=== PATIENT | female | born 1935 | race Caucasian/White ===

== ENCOUNTER 2018-07-27 12:11 | Inpatient (IN) | payer MEDICARE ==
[2018-07-27] MEDS ORDERED: SODIUM CHLORIDE 0.9% 1,000 ML IV ONE ×2 (12:15→14:48)
--- NOTE | 2018-07-27 12:28 | ED ---
General Adult HPI - General Stated complaint: Fall - History of Present Illness Initial comments: Dictation was produced using [employer] dictation software. please excuse any grammatical, word or spelling errors. Chief Complaint: 83-year-old female presents via EMS for right hip pain. History of Present Illness: Patient was transferred by EMS for right hip pain. Patient allegedly tripped over her oxygen cord. She fell onto her right side she merely notice right hip pain. Patient denies any other complaints. She states she does have some pain to her right knee just below the patellar region. Vital signs are stable per EMS. The ROS documented in this emergency department record has been reviewed and confirmed by me. Those systems with pertinent positive or negative responses have been documented in the HPI. All other systems are other negative and/or noncontributory. - Related Data Home Medications Medication Instructions Recorded Confirmed ALPRAZolam [Xanax] 1 mg PO TID PRN 07/27/18 07/29/18 Acetaminophen with Codeine 1 tab PO BID PRN 07/27/18 07/29/18 [Acetaminophen-Cod #2 Tablet] Apixaban [Eliquis] 2.5 mg PO BID 07/27/18 07/29/18 Atorvastatin Calcium [Lipitor] 20 mg PO HS 07/27/18 07/29/18 Doxycycline Hyclate [Vibramycin] 100 mg PO BID 07/27/18 07/29/18 Furosemide [Lasix] 40 mg PO BID 07/27/18 07/29/18 Glimepiride [Amaryl] 2 mg PO DAILY 07/27/18 07/29/18 Insulin Glargine [Lantus] 30 unit SQ HS 07/27/18 07/29/18 Insulin Lispro [humaLOG Kwikpen] 4 unit SQ AC-TID 07/27/18 07/29/18 Insulin Lispro [humaLOG Kwikpen] See Protocol SQ AC-TID 07/27/18 07/29/18 Levothyroxine Sodium [Synthroid] 50 mcg PO DAILY 07/27/18 07/29/18 Lisinopril [Zestril] 2.5 mg PO DAILY 07/27/18 07/29/18 Metoprolol Succinate (ER) [Toprol 25 mg PO DAILY 07/27/18 07/29/18 Xl] NIFEdipine [NIFEdipine ER] 60 mg PO DAILY 07/27/18 07/29/18 Omeprazole 20 mg PO DAILY 07/27/18 07/29/18 PARoxetine [Paxil] 10 mg PO DAILY 07/27/18 07/29/18 Potassium Chloride [Klor-Con 10] 10 meq PO DAILY 07/27/18 07/29/18 Allergies Allergy/AdvReac Type Severity Reaction Status Date / Time No Known Allergies Allergy Verified 07/29/18 11:21 Review of Systems ROS Statement: Those systems with pertinent positive or pertinent negative responses have been documented in the HPI. ROS Other: All systems not noted in ROS Statement are negative. Past Medical History - Past Family History Mother Family Medical History: Cancer Additional Family Medical History / Comment(s): lung cancer Father Family Medical History: COPD Additional Family Medical History / Comment(s): emphysema General Exam - General Exam Comments Initial Comments: PHYSICAL EXAM: General Impression: Alert and oriented x3, not in acute distress HEENT: Normocephalic atraumatic, extra-ocular movements intact, pupils equal and reactive to light bilaterally, mucous membranes moist. Cardiovascular: Heart regular rate and rhythm, S1&S2 audible, no murmurs, rubs or gallops Chest: Lungs clear to auscultation bilaterally, no rhonchi, no wheeze, no rales Abdomen: Bowel sounds present, abdomen soft, non-tender, non-distended, no organomegaly Musculoskeletal: Pulses present and equal in all extremities, neurovascularly intact to bilateral lower extremities, externally rotated and shortened right lower extremity Motor: Power 5/5 bilaterally, no focal deficits noted Neurological: CN II-XII grossly intact, no focal motor or sensory deficits noted Skin: Intact with no visualized rashes Psych: Normal affect and mood Course Vital Signs 07/27/18 07/27/18 07/27/18 12:12 13:21 14:14 Temperature 97.5 F L 97.1 F L Pulse Rate 79 77 76 Respiratory 18 18 18 Rate Blood Pressure 144/95 133/61 146/66 O2 Sat by Pulse 98 95 94 L Oximetry 07/27/18 07/27/18 15:29 15:41 Temperature 98.3 F 97.2 F L Pulse Rate 81 87 Respiratory 20 18 Rate Blood Pressure 138/65 154/74 O2 Sat by Pulse 98 96 Oximetry Medical Decision Making - Medical Decision Making Laboratory evaluation obtained. CBC is unremarkable. Coag panel is within normal limits. Metabolic panel shows findings of acute kidney injury. Rest of labs unremarkable. Chest x-ray shows mild cardiomegaly however no acute processes. Computed tomography scan of the head and C-spine was obtained given that patient is alert geriatric age and had unwitnessed fall. No acute processes and the CT spine or head. Belly x-ray shows comminuted subtrochanteric fracture of the proximal right femur with a fracture fragment also provided the lesser trochanter and with anterior apex angulation. Discussed patient case with orthopedic surgery who requests that patient be admitted to medicine with orthopedic surgery consult given that patient has significant comorbidities. Fascia iliac nerve block was performed at bedside using ultrasound. Patient tolerated procedure well - Lab Data Result diagrams: 08/01/18 07:50 08/01/18 07:50 Lab Results 07/27/18 07/27/18 07/27/18 Range/Units 12:32 12:32 12:32 WBC 9.3 (3.8-10.6) k/uL RBC 4.09 (3.80-5.40) m/uL Hgb 10.5 L (11.4-16.0) gm/dL Hct 33.7 L (34.0-46.0) % MCV 82.6 (80.0-100.0) fL MCH 25.8 (25.0-35.0) pg MCHC 31.2 (31.0-37.0) g/dL RDW 17.5 H (11.5-15.5) % Plt Count 245 (150-450) k/uL Neutrophils % 70 % Lymphocytes % 21 % Monocytes % 5 % Eosinophils % 2 % Basophils % 1 % Neutrophils # 6.5 (1.3-7.7) k/uL Lymphocytes # 2.0 (1.0-4.8) k/uL Monocytes # 0.5 (0-1.0) k/uL Eosinophils # 0.2 (0-0.7) k/uL Basophils # 0.0 (0-0.2) k/uL Anisocytosis Slight PT 10.6 (9.0-12.0) sec INR 1.1 (<1.2) APTT 24.6 (22.0-30.0) sec Sodium 136 L (137-145) mmol/L Potassium 4.3 (3.5-5.1) mmol/L Chloride 106 (98-107) mmol/L Carbon Dioxide 20 L (22-30) mmol/L Anion Gap 10 mmol/L BUN 82 H (7-17) mg/dL Creatinine 1.94 H (0.52-1.04) mg/dL Est GFR (CKD-EPI)AfAm 27 (>60 ml/min/1.73 sqM) Est GFR (CKD-EPI)NonAf 24 (>60 ml/min/1.73 sqM) Glucose 157 H (74-99) mg/dL Estimated Ave Glu mg/dL Hemoglobin A1c (4.0-6.0) % Calcium 8.0 L (8.4-10.2) mg/dL Total Bilirubin 0.4 (0.2-1.3) mg/dL AST 25 (14-36) U/L ALT 30 (9-52) U/L Alkaline Phosphatase 137 H (38-126) U/L Total Protein 6.2 L (6.3-8.2) g/dL Albumin 2.6 L (3.5-5.0) g/dL 07/27/18 Range/Units 12:32 WBC (3.8-10.6) k/uL RBC (3.80-5.40) m/uL Hgb (11.4-16.0) gm/dL Hct (34.0-46.0) % MCV (80.0-100.0) fL MCH (25.0-35.0) pg MCHC (31.0-37.0) g/dL RDW (11.5-15.5) % Plt Count (150-450) k/uL Neutrophils % % Lymphocytes % % Monocytes % % Eosinophils % % Basophils % % Neutrophils # (1.3-7.7) k/uL Lymphocytes # (1.0-4.8) k/uL Monocytes # (0-1.0) k/uL Eosinophils # (0-0.7) k/uL Basophils # (0-0.2) k/uL Anisocytosis PT (9.0-12.0) sec INR (<1.2) APTT (22.0-30.0) sec Sodium (137-145) mmol/L Potassium (3.5-5.1) mmol/L Chloride (98-107) mmol/L Carbon Dioxide (22-30) mmol/L Anion Gap mmol/L BUN (7-17) mg/dL Creatinine (0.52-1.04) mg/dL Est GFR (CKD-EPI)AfAm (>60 ml/min/1.73 sqM) Est GFR (CKD-EPI)NonAf (>60 ml/min/1.73 sqM) Glucose (74-99) mg/dL Estimated Ave Glu mg/dL 180 Hemoglobin A1c 7.9 H (4.0-6.0) % Calcium (8.4-10.2) mg/dL Total Bilirubin (0.2-1.3) mg/dL AST (14-36) U/L ALT (9-52) U/L Alkaline Phosphatase (38-126) U/L Total Protein (6.3-8.2) g/dL Albumin (3.5-5.0) g/dL Disposition Clinical Impression: Femur fracture Disposition: ADMITTED IP TO THIS HOSP
[2018-07-27 13:03] LABS: INR 1.1 (<1.2); Partial Thromboplastin Time 24.6 sec (22.0-30.0); Prothrombin Time 10.6 sec (9.0-12.0)
[2018-07-27 13:05] LABS: Anisocytosis Slight; Basophils % (A) 1 %; Eosinophils # (A) 0.2 k/uL (0-0.7); Eosinophils % (A) 2 %; HCT 33.7 % (34.0-46.0); HGB 10.5 gm/dL (11.4-16.0); Lymphocytes % (A) 21 %; MCH 25.8 pg (25.0-35.0); MCHC 31.2 g/dL (31.0-37.0); MCV 82.6 fL (80.0-100.0); Mean Platelet Volume 9.2; Monocytes # (A) 0.5 k/uL (0-1.0); Monocytes % (A) 5 %; Neutrophils # (A) 6.5 k/uL (1.3-7.7); Neutrophils % (A) 70 %; Platelet Count 245 k/uL (150-450); RBC 4.09 m/uL (3.80-5.40); RDW 17.5 % (11.5-15.5); WBC 9.3 k/uL (3.8-10.6)
[2018-07-27 13:10] LABS: Albumin 2.6 g/dL (3.5-5.0); Potassium 4.3 mmol/L (3.5-5.1); Total Bilirubin 0.4 mg/dL (0.2-1.3); Total Protein 6.2 g/dL (6.3-8.2)
--- NOTE | 2018-07-27 13:32 | XR ---
EXAMINATION TYPE: XR chest 1V DATE OF EXAM: 07/27/2018 COMPARISON: NONE HISTORY: 83-year-old female with pain, fall TECHNIQUE: Single frontal view of the chest is obtained. FINDINGS: Heart is mildly enlarged. Numerous calcified small nodules are present. No consolidation, pneumothora x, or significant pleural effusion is seen. Some limitation due to patient's large body habitus and a reas of under penetration. IMPRESSION: Cardiomegaly with multiple small calcified pulmonary nodules suggest either prior granulomatous disea se or old fungal or viral infection. No definite acute process.
--- NOTE | 2018-07-27 13:34 | XR ---
EXAMINATION TYPE: XR pelvis AP view, XR femur 2 views RT DATE OF EXAM: 07/27/2018 COMPARISON: NONE HISTORY: 83-year-old female with fall and pain FINDINGS: Degenerative changes lower lumbar spine. Marked osteopenia. Vascular calcifications are present. Stap le line from prior bowel surgery. Additional surgical clips in the pelvis. Mild degenerative change o f both hips. There is a comminuted subtrochanteric fracture of the proximal right femur. Fracture may extend to in volve the lesser trochanter. There is mild displacement but more prominent external rotation of the h ead and lateral or anterior angulation. Mild degenerative changes at the knee. No additional femoral fracture seen. IMPRESSION: Comminuted subtrochanteric fracture proximal right femur with a fracture fragment also involving the lesser trochanter and with anterior apex angulation.
--- NOTE | 2018-07-27 14:07 | CT ---
EXAMINATION TYPE: CT brain maldonado boyd DATE OF EXAM: 07/27/2018 COMPARISON: None HISTORY: fall CT DLP: [address] of the brain was performed. The ventricles, basal cisterns and sulci overlying the cerebral convexities demonstrate mild enlargem ent. There is no evidence for intracranial hemorrhage or sulcal effacement. There is decreased attenuatio n about the periventricular white matter and deep white matter of both cerebral hemispheres, compatib le with chronic small vessel ischemia. No mass effects are seen. If symptoms persist consider MRI. Osseous calvarium is intact. IMPRESSION: 1. Age related atrophic and chronic small vessel ischemic change without acute intracranial process seen at this time. CT Cervical Spine: Unenhanced CT of the cervical spine was performed with bone and soft tissue window settings submitted . Coronal and sagittal reconstruction is obtained. There is normal alignment and prevertebral soft tissues. No evidence for acute cervical fracture . Scattered degenerative disc disease and spondylosis. Biapical scarring. IMPRESSION: 1. No evidence for acute fracture or subluxation of the cervical spine.
[2018-07-27] MEDS ORDERED: NALOXONE 0.4 MG/ML 1 ML VIAL IV PRN (14:26)
[2018-07-27] MEDS ORDERED: LIDOCAINE 1%-EPI 1:100,000 30 ML VIAL SQ STA (14:36)
[2018-07-27] MEDS ORDERED: BUPIVACAINE (PF) 0.5% 30 ML VIAL MISCELLANE STA (14:40)
[2018-07-27] MEDS ORDERED: MORPHINE SULFATE 2 MG/ML SYRINGE IVP PRN (14:47)
[2018-07-27] MEDS ORDERED: ONDANSETRON 4 MG/2 ML VIAL IVP PRN (14:47)
[2018-07-27] MEDS ORDERED: IPRATROPIUM-ALBUTEROL 3 ML NEB INHALATION PRN (14:47)
[2018-07-27] MEDS ORDERED: ROPIVACAINE 5 MG/ML 30 ML VIAL MISCELLANE STA (14:59)
[2018-07-27] MEDS ORDERED: LIDOCAINE 1% INJ 10MG/ML (20 ML MDV) SQ STA (14:59)
--- NOTE | 2018-07-27 14:59 | P.HPIM ---
History of Present Illness H&P Date: 07/27/18 Chief Complaint: Mechanical fall This is a 83-year-old female with past medical history noted below significant for underlying diabetes and chronic kidney disease who presented to the emergency room with a mechanical fall. Patient said that she was walking around her house and suddenly her right lower extremity give up on her and she failed and landed on her right side. She was brought into the emergency room by EMS. X-ray showed evidence of a subtrochanteric fracture involving the proximal right femur. Patient told me that she is in a lot of pain. ER physician is planning to do a nerve block. Patient said that she had couple of falls at home within the past one week. She said that she lives alone. She usually ambulates using a walker. She is unable to go upstairs secondary to chronic arthritis pain. She denies any shortness of breath or chest pain. She denies losing consciousness. She denies any previous cardiac history. She reported that she uses oxygen intermittently at home. She has underlying COPD. She is not sure of her home medications. This plan for her to be admitted to medicine awaiting orthopedic evaluation. Review of Systems Review of system: 14 points review of systems were obtained and were negative except to what were mentioned in the HPI. Past Medical History Past Medical History: COPD, Diabetes Mellitus, Hypertension, Osteoarthritis (OA) History of Any Multi-Drug Resistant Organisms: MRSA Past Surgical History: Appendectomy, Hysterectomy Additional Past Surgical History / Comment(s): Colon surgery, "stomach surgery on boils", "for cysts under my arms" Past Psychological History: Anxiety Smoking Status: Former smoker Past Alcohol Use History: None Reported Past Drug Use History: None Reported Medications and Allergies Home Medications Medication Instructions Recorded Confirmed Type ALPRAZolam [Xanax] 1 mg PO TID PRN 07/27/18 07/27/18 History Acetaminophen with Codeine 1 tab PO BID PRN 07/27/18 07/27/18 History [Acetaminophen-Cod #2 Tablet] Apixaban [Eliquis] 2.5 mg PO BID 07/27/18 07/27/18 History Atorvastatin Calcium [Lipitor] 20 mg PO HS 07/27/18 07/27/18 History Glimepiride [Amaryl] 2 mg PO DAILY 07/27/18 07/27/18 History Metoprolol Succinate (ER) [Toprol 25 mg PO DAILY 07/27/18 07/27/18 History Xl] Omeprazole 20 mg PO DAILY 07/27/18 07/27/18 History PARoxetine [Paxil] 10 mg PO DAILY 07/27/18 07/27/18 History Allergies Allergy/AdvReac Type Severity Reaction Status Date / Time No Known Allergies Allergy Verified 07/27/18 12:41 Physical Exam Vitals: Vital Signs Temp Pulse Resp BP Pulse Ox 07/27/18 14:14 97.1 F L 76 18 146/66 94 L 07/27/18 13:21 77 18 133/61 95 07/27/18 12:12 97.5 F L 79 18 144/95 98 Intake and Output 07/26/18 07/27/18 07/27/18 22:59 06:59 14:59 Other: Weight 80.286 kg General: The patient is awake and alert, in no distress Eye: there is normal conjunctiva bilaterally. Neck: The neck is supple, there is no JVD. Cardiovascular: Normal S1-S2, no S3-S4, no murmurs. Respiratory: Lungs clear to auscultation bilaterally Gastrointestinal: Abdomen is soft, nontender Musculoskeletal: There is no pedal edema. Neurological:. Speech is normal. Skin: Skin is warm and dry Results CBC & Chem 7: 07/27/18 12:32 07/27/18 12:32 Labs: Abnormal Lab Results - Last 24 Hours (Table) 07/27/18 07/27/18 Range/Units 12:32 12:32 Hgb 10.5 L (11.4-16.0) gm/dL Hct 33.7 L (34.0-46.0) % RDW 17.5 H (11.5-15.5) % Sodium 136 L (137-145) mmol/L Carbon Dioxide 20 L (22-30) mmol/L BUN 82 H (7-17) mg/dL Creatinine 1.94 H (0.52-1.04) mg/dL Glucose 157 H (74-99) mg/dL Calcium 8.0 L (8.4-10.2) mg/dL Alkaline Phosphatase 137 H (38-126) U/L Total Protein 6.2 L (6.3-8.2) g/dL Albumin 2.6 L (3.5-5.0) g/dL Assessment and Plan Assessment: 1. Subtrochanteric fracture of the proximal right femur: Noted on x-ray. Awaiting orthopedic evaluation. We will continue pain control as needed. 2. Underlying COPD, with no evidence of exacerbation. DuoNeb's ordered as needed. 3. Stage IIIB chronic kidney disease, with baseline creatinine around 1.9 4. Type 2 diabetes mellitus, I would order sliding scale insulin and check A1c. 5. DVT prophylaxis with subcu heparin Today, I reviewed her lab work results. Awaiting laundry tech to upload her home medication list in the computer. Patient appears to have one or 2. of risk factors on the RCR I score involving her type 2 diabetes and chronic kidney disease. She denies any cardiac history. She is at an acceptable risk for possible therapeutic surgery involving the right hip. I would consult cardiology for cardiac clearance We'll continue current regimen otherwise. Gentle IV fluid hydration. Incentive spirometer at bedside. Repeat lab work in the morning.
[2018-07-27 16:55] LABS: Glucose,Whole Blood 202 mg/dL (75-99)
[2018-07-27] MEDS: HYDROcodone/APAP 5-325MG 1 EACH TAB PO PRN ×2 (17:26→22:13)
[2018-07-27] MEDS: ACETAMINOPHEN TAB 325 MG TAB PO PRN (17:27)
[2018-07-27] MEDS: INSULIN ASPART 100 UNIT/ML 1 ML 10 ML VIAL SQ SCH ×2 (19:29→20:59)
[2018-07-27 20:20] LABS: Glucose,Whole Blood 291 mg/dL (75-99)
[2018-07-27] MEDS ORDERED: INSULIN DETEMIR 100 UNIT/ML 10 ML VIAL SQ SCH (21:00)
[2018-07-27] MEDS: HEPARIN SODIUM,PORCINE 5,000 UNIT/ML 1 ML VIAL SQ SCH (21:56)
[2018-07-27] MEDS: FUROSEMIDE 40 MG TAB PO SCH (21:56)
[2018-07-27] MEDS: ATORVASTATIN 20 MG TAB PO SCH (21:56)
[2018-07-27 23:13] LABS: Hemoglobin A1C 7.9 % (4.0-6.0)
[2018-07-28] MEDS: ACETAMINOPHEN TAB 325 MG TAB PO PRN (00:52)
[2018-07-28] MEDS: LEVOTHYROXINE 50 MCG TAB PO SCH (05:56)
[2018-07-28] MEDS: HYDROcodone/APAP 5-325MG 1 EACH TAB PO PRN ×3 (05:57→18:09)
[2018-07-28 07:34] LABS: Glucose,Whole Blood 49 mg/dL (75-99)
[2018-07-28 07:41] LABS: Anisocytosis Slight; Basophils % (A) 0 %; Eosinophils # (A) 0.1 k/uL (0-0.7); Eosinophils % (A) 1 %; HCT 30.6 % (34.0-46.0); HGB 9.6 gm/dL (11.4-16.0); Lymphocytes # (A) 1.9 k/uL (1.0-4.8); Lymphocytes % (A) 20 %; MCH 26.2 pg (25.0-35.0); MCHC 31.4 g/dL (31.0-37.0); MCV 83.6 fL (80.0-100.0); Mean Platelet Volume 8.7; Monocytes # (A) 0.6 k/uL (0-1.0); Monocytes % (A) 7 %; Neutrophils # (A) 6.8 k/uL (1.3-7.7); Neutrophils % (A) 71 %; Platelet Count 229 k/uL (150-450); RBC 3.65 m/uL (3.80-5.40); RDW 17.7 % (11.5-15.5); WBC 9.6 k/uL (3.8-10.6)
[2018-07-28 07:53] LABS: Glucose,Whole Blood 70 mg/dL (75-99)
[2018-07-28 07:58] LABS: Albumin 2.2 g/dL (3.5-5.0); Calcium 7.9 mg/dL (8.4-10.2); Total Bilirubin 0.3 mg/dL (0.2-1.3); Total Protein 5.6 g/dL (6.3-8.2)
[2018-07-28] MEDS: INSULIN ASPART 100 UNIT/ML 1 ML 10 ML VIAL SQ SCH ×4 (08:32→20:54)
[2018-07-28 08:33] LABS: Glucose,Whole Blood 145 mg/dL (75-99)
--- NOTE | 2018-07-28 08:41 | P.CNOR ---
History of Present Illness - [facility] Consult date: 07/28/18 Consult reason: fracture (Right subtroch fracture.) History of present illness: This is an 83-year-old female who fell in her home yesterday sustaining injury to her right hip. She states that she has had multiple falls recently. She thinks she may be losing her balance. She denies dizziness or lightheadedness. She was brought to the emergency department for evaluation. On exam and x- ray she was found to have a subtrochanteric fracture of the right hip. She is admitted to internal medicine. We're consulted for orthopedic evaluation. She has history of multiple infected wounds about her abdomen and pubic region. She states that she has seen Dr. Velez in the past for these lesions that come and go over the past several years. Past Medical History Past Medical History: COPD, Diabetes Mellitus, Hypertension, Osteoarthritis (OA) Additional Past Medical History / Comment(s): DIVERTICULITIS(SX), START OF CATARACATS, HOME 02 1 LITER N/C NEEDED, "BOILD ON ABD,DRAINING" History of Any Multi-Drug Resistant Organisms: None Reported Year Discovered:: None MDRO Source:: None Past Surgical History: Appendectomy, Hysterectomy Additional Past Surgical History / Comment(s): had colostomy for few months then reversed, "stomach surgery on boils", "for cysts under my arms","water taken off lt knee" Past Anesthesia/Blood Transfusion Reactions: No Reported Reaction Additional Past Anesthesia/Blood Transfusion Reaction / Comm: clausterphobia Smoking Status: Former smoker - Past Family History Mother Family Medical History: Cancer Additional Family Medical History / Comment(s): lung cancer Father Family Medical History: COPD Additional Family Medical History / Comment(s): emphysema Medications and Allergies Home Medications Medication Instructions Recorded Confirmed Type ALPRAZolam [Xanax] 1 mg PO TID PRN 07/27/18 07/27/18 History Acetaminophen with Codeine 1 tab PO BID PRN 07/27/18 07/27/18 History [Acetaminophen-Cod #2 Tablet] Apixaban [Eliquis] 2.5 mg PO BID 07/27/18 07/27/18 History Atorvastatin Calcium [Lipitor] 20 mg PO HS 07/27/18 07/27/18 History Doxycycline Hyclate [Vibramycin] 100 mg PO BID 07/27/18 07/27/18 History Furosemide [Lasix] 40 mg PO BID 07/27/18 07/27/18 History Glimepiride [Amaryl] 2 mg PO DAILY 07/27/18 07/27/18 History Insulin Glargine [Lantus] 30 unit SQ HS 07/27/18 07/27/18 History Insulin Lispro [humaLOG Kwikpen] 4 unit SQ AC-TID 07/27/18 07/27/18 History Insulin Lispro [humaLOG Kwikpen] See Protocol SQ AC-TID 07/27/18 07/27/18 History Levothyroxine Sodium [Synthroid] 50 mcg PO DAILY 07/27/18 07/27/18 History Lisinopril [Zestril] 2.5 mg PO DAILY 07/27/18 07/27/18 History Metoprolol Succinate (ER) [Toprol 25 mg PO DAILY 07/27/18 07/27/18 History Xl] NIFEdipine [NIFEdipine ER] 60 mg PO DAILY 07/27/18 07/27/18 History Omeprazole 20 mg PO DAILY 07/27/18 07/27/18 History PARoxetine [Paxil] 10 mg PO DAILY 07/27/18 07/27/18 History Potassium Chloride [Klor-Con 10] 10 meq PO DAILY 07/27/18 07/27/18 History Allergies Allergy/AdvReac Type Severity Reaction Status Date / Time No Known Allergies Allergy Verified 07/27/18 17:41 Physical Examination This is a pleasant 83-year-old female in no acute distress. She is alert and oriented 3. Exam of the head and neck reveal no obvious deformity. She has full cervical spine motion without difficulty or pain. Exam of the upper extremities is unremarkable. She has full shoulder, elbow, wrist and finger motion bilaterally. Neurovascular status to the upper extremities is intact. Exam of the abdomen and pelvis reveal multiple blackheads with areas of erythema and drainage about the pubis. There is a large reddened area about the sacrum with some induration. Exam of the lower extremities reveals shortening of the right leg. Bilateral feet are in boots to prevent pressure sores. There is pain with motion to the right hip. Results X-rays of the right hip and pelvis reveal a comminuted subtrochanteric fracture of the right hip - Labs Labs: Abnormal Lab Results - Last 24 Hours (Table) 07/27/18 07/27/18 07/27/18 Range/Units 12:32 12:32 12:32 RBC (3.80-5.40) m/uL Hgb 10.5 L (11.4-16.0) gm/dL Hct 33.7 L (34.0-46.0) % RDW 17.5 H (11.5-15.5) % Sodium 136 L (137-145) mmol/L Chloride (98-107) mmol/L Carbon Dioxide 20 L (22-30) mmol/L BUN 82 H (7-17) mg/dL Creatinine 1.94 H (0.52-1.04) mg/dL Glucose 157 H (74-99) mg/dL POC Glucose (mg/dL) (75-99) mg/dL Hemoglobin A1c 7.9 H (4.0-6.0) % Calcium 8.0 L (8.4-10.2) mg/dL Alkaline Phosphatase 137 H (38-126) U/L Total Protein 6.2 L (6.3-8.2) g/dL Albumin 2.6 L (3.5-5.0) g/dL 07/27/18 07/27/18 07/28/18 Range/Units 16:47 20:17 07:21 RBC 3.65 L (3.80-5.40) m/uL Hgb 9.6 L (11.4-16.0) gm/dL Hct 30.6 L (34.0-46.0) % RDW 17.7 H (11.5-15.5) % Sodium (137-145) mmol/L Chloride (98-107) mmol/L Carbon Dioxide (22-30) mmol/L BUN (7-17) mg/dL Creatinine (0.52-1.04) mg/dL Glucose (74-99) mg/dL POC Glucose (mg/dL) 202 H 291 H (75-99) mg/dL Hemoglobin A1c (4.0-6.0) % Calcium (8.4-10.2) mg/dL Alkaline Phosphatase (38-126) U/L Total Protein (6.3-8.2) g/dL Albumin (3.5-5.0) g/dL 07/28/18 07/28/18 07/28/18 Range/Units 07:21 07:26 07:47 RBC (3.80-5.40) m/uL Hgb (11.4-16.0) gm/dL Hct (34.0-46.0) % RDW (11.5-15.5) % Sodium (137-145) mmol/L Chloride 110 H (98-107) mmol/L Carbon Dioxide 20 L (22-30) mmol/L BUN 81 H (7-17) mg/dL Creatinine 2.09 H (0.52-1.04) mg/dL Glucose 42 L* (74-99) mg/dL POC Glucose (mg/dL) 49 L 70 L (75-99) mg/dL Hemoglobin A1c (4.0-6.0) % Calcium 7.9 L (8.4-10.2) mg/dL Alkaline Phosphatase (38-126) U/L Total Protein 5.6 L (6.3-8.2) g/dL Albumin 2.2 L (3.5-5.0) g/dL H & H 07/27/18 07/28/18 Range/Units 12:32 07:21 Hgb 10.5 L 9.6 L (11.4-16.0) gm/dL Hct 33.7 L 30.6 L (34.0-46.0) % Coagulation 07/27/18 Range/Units 12:32 INR 1.1 (<1.2) Result Diagrams: 07/28/18 07:21 07/28/18 07:21 Assessment and Plan (1) Fracture, subtrochanteric, right femur, closed Current Visit: Yes Status: Acute Code(s): S72.21XA - DISPLACED SUBTROCHANTERIC FRACTURE OF RIGHT FEMUR, INIT SNOMED Code(s): 318457125 (2) Obesity (BMI 30.0-34.9) Current Visit: Yes Status: Acute Code(s): E66.9 - OBESITY, UNSPECIFIED SNOMED Code(s): 376078321 (3) Type 1 diabetes mellitus Current Visit: Yes Status: Acute Code(s): E10.9 - TYPE 1 DIABETES MELLITUS WITHOUT COMPLICATIONS SNOMED Code(s): 33535185 (4) Skin infection Current Visit: Yes Status: Acute Code(s): L08.9 - LOCAL INFECTION OF THE SKIN AND SUBCUTANEOUS TISSUE, UNSP SNOMED Code(s): 417932797 Plan: The clinical and x-ray findings are discussed with the patient. It is recommended she undergo closed reduction with insertion of long intertrochanteric nail of the right hip. The procedure has been discussed in detail including the possible risks and outcomes of surgery. The patient was on Eliquis but did not take her morning medications yesterday. Last dose of Eliquis was 07/26/2018. I have asked Dr. Velez to evaluate the patient for her multiple areas of skin abscesses about her pannus and pubis. We are planning for surgery tomorrow if the patient is cleared medically.
[2018-07-28] MEDS: FUROSEMIDE 40 MG TAB PO SCH (09:55)
[2018-07-28] MEDS: METOPROLOL SUCCINATE (ER) 25 MG TAB.ER.24H PO SCH (09:55)
[2018-07-28] MEDS: PANTOPRAZOLE 40 MG TABLET PO SCH (09:55)
[2018-07-28] MEDS: LISINOPRIL 2.5 MG TAB PO SCH (09:56)
[2018-07-28] MEDS: HEPARIN SODIUM,PORCINE 5,000 UNIT/ML 1 ML VIAL SQ SCH ×2 (09:56→20:53)
[2018-07-28] MEDS: PARoxetine 10 MG TAB PO SCH (09:58)
--- NOTE | 2018-07-28 11:56 | P.PN ---
Subjective Progress Note Date: 07/28/18 Patient had an episode of hypoglycemia this morning with blood glucose of 42 that was corrected quickly and most recent blood glucose was 145. Patient is doing fairly well otherwise. Pain is well controlled. Objective - Vital Signs Vital signs: Vital Signs Temp 97.9 F 07/28/18 08:23 Pulse 90 07/28/18 08:23 Resp 18 07/28/18 08:23 BP 151/82 07/28/18 08:23 Pulse Ox 92 L 07/28/18 08:23 Intake & Output 07/27/18 07/28/18 07/28/18 18:59 06:59 18:59 Output Total 800 Balance -800 Weight 80.286 kg Output: Urine 800 Other: Voiding Method Indwelling Catheter Indwelling Catheter - Exam General: The patient is awake and alert, in no distress Eye: there is normal conjunctiva bilaterally. Neck: The neck is supple, there is no JVD. Cardiovascular: Normal S1-S2, no S3-S4, no murmurs. Respiratory: Lungs clear to auscultation bilaterally Gastrointestinal: Abdomen is soft, nontender Musculoskeletal: There is no pedal edema. Neurological:. Speech is normal. Skin: Skin is warm and dry - Labs CBC & Chem 7: 07/28/18 07:21 07/28/18 07:21 Labs: Abnormal Lab Results - Last 24 Hours (Table) 07/27/18 07/27/18 07/27/18 Range/Units 12:32 12:32 12:32 RBC (3.80-5.40) m/uL Hgb 10.5 L (11.4-16.0) gm/dL Hct 33.7 L (34.0-46.0) % RDW 17.5 H (11.5-15.5) % Sodium 136 L (137-145) mmol/L Chloride (98-107) mmol/L Carbon Dioxide 20 L (22-30) mmol/L BUN 82 H (7-17) mg/dL Creatinine 1.94 H (0.52-1.04) mg/dL Glucose 157 H (74-99) mg/dL POC Glucose (mg/dL) (75-99) mg/dL Hemoglobin A1c 7.9 H (4.0-6.0) % Calcium 8.0 L (8.4-10.2) mg/dL Alkaline Phosphatase 137 H (38-126) U/L Total Protein 6.2 L (6.3-8.2) g/dL Albumin 2.6 L (3.5-5.0) g/dL 07/27/18 07/27/18 07/28/18 Range/Units 16:47 20:17 07:21 RBC 3.65 L (3.80-5.40) m/uL Hgb 9.6 L (11.4-16.0) gm/dL Hct 30.6 L (34.0-46.0) % RDW 17.7 H (11.5-15.5) % Sodium (137-145) mmol/L Chloride (98-107) mmol/L Carbon Dioxide (22-30) mmol/L BUN (7-17) mg/dL Creatinine (0.52-1.04) mg/dL Glucose (74-99) mg/dL POC Glucose (mg/dL) 202 H 291 H (75-99) mg/dL Hemoglobin A1c (4.0-6.0) % Calcium (8.4-10.2) mg/dL Alkaline Phosphatase (38-126) U/L Total Protein (6.3-8.2) g/dL Albumin (3.5-5.0) g/dL 07/28/18 07/28/18 07/28/18 Range/Units 07:21 07:26 07:47 RBC (3.80-5.40) m/uL Hgb (11.4-16.0) gm/dL Hct (34.0-46.0) % RDW (11.5-15.5) % Sodium (137-145) mmol/L Chloride 110 H (98-107) mmol/L Carbon Dioxide 20 L (22-30) mmol/L BUN 81 H (7-17) mg/dL Creatinine 2.09 H (0.52-1.04) mg/dL Glucose 42 L* (74-99) mg/dL POC Glucose (mg/dL) 49 L 70 L (75-99) mg/dL Hemoglobin A1c (4.0-6.0) % Calcium 7.9 L (8.4-10.2) mg/dL Alkaline Phosphatase (38-126) U/L Total Protein 5.6 L (6.3-8.2) g/dL Albumin 2.2 L (3.5-5.0) g/dL 07/28/18 Range/Units 08:29 RBC (3.80-5.40) m/uL Hgb (11.4-16.0) gm/dL Hct (34.0-46.0) % RDW (11.5-15.5) % Sodium (137-145) mmol/L Chloride (98-107) mmol/L Carbon Dioxide (22-30) mmol/L BUN (7-17) mg/dL Creatinine (0.52-1.04) mg/dL Glucose (74-99) mg/dL POC Glucose (mg/dL) 145 H (75-99) mg/dL Hemoglobin A1c (4.0-6.0) % Calcium (8.4-10.2) mg/dL Alkaline Phosphatase (38-126) U/L Total Protein (6.3-8.2) g/dL Albumin (3.5-5.0) g/dL Assessment and Plan Assessment: 1. Subtrochanteric fracture of the proximal right femur: Noted on x-ray. Seen and evaluated by orthopedics. Patient needs to be off Eliquis for at least 48 hours before proceeding with any surgical intervention. We will continue pain control as needed. 2. Underlying COPD, with no evidence of exacerbation. DuoNeb's ordered as needed. 3. Stage IIIB chronic kidney disease, with baseline creatinine around 1.9 4. Type 2 diabetes mellitus, A1c 7.9. I would decrease her Levemir dose to 20 units given episode of hypoglycemia this morning. Sliding scale insulin otherwise. 5. History of small abscesses involving the abdominal pannus, awaiting infectious disease evaluation 6. DVT prophylaxis with subcu heparin Today, I reviewed her lab work results. Awaiting cardiology evaluation and echocardiogram report. We'll continue current regimen otherwise. Incentive spirometer at bedside. Repeat lab work in the morning.
[2018-07-28 12:08] LABS: Glucose,Whole Blood 106 mg/dL (75-99)
--- NOTE | 2018-07-28 13:20 | ECHOF ---
Referral Reason: MEASUREMENTS -------- HEIGHT: 162.6 cm WEIGHT: 80.3 kg BP: 151/82 IVSd: 1.4 cm (0.6 - 1.1) LVIDd: 4.6 cm (3.9 - 5.3) LVPWd: 1.4 cm (0.6 - 1.1) IVSs: 1.7 cm LVIDs: 3.3 cm LVPWs: 1.4 cm LA Diam: 3.0 cm (2.7 - 3.8) LAESV Index (A-L): 42.39 ml/m Ao Diam: 2.8 cm (2.0 - 3.7) AV Cusp: 1.0 cm (1.5 - 2.6) LA Diam: 3.6 cm (2.7 - 3.8) MV EXCURSION: 15.965 mm (> 18.000) MV EF SLOPE: 66 mm/s (70 - 150) EPSS: 0.6 cm MV E Aditya: 0.51 m/s MV DecT: 276 ms MV A Aditya: 1.17 m/s MV E/A Ratio: 0.44 AV maxP.03 mmHg AV meanP.97 mmHg RAP: 5.00 mmHg RVSP: 45.07 mmHg FINDINGS -------- Sinus rhythm. This was a technically adequate study. The left ventricular size is normal. There is mild concentric left ventricular hypertrophy. Overa ll left ventricular systolic function is low-normal with, an EF between 50 - 55 %. Mitral Doppler i nflow pattern suggests diastolic filling abnormality 16.76. The right ventricle is normal in size. The left atrial size is normal. LA is moderately dilated 34-39 ml/m2 The right atrial size is normal. There is mild aortic valve sclerosis. There is mild aortic stenosis present. Peak/mean gradient a cross the Aortic Valve is 25.03mmHg / 10.97mmHg. Mild mitral annular calcification present. Mild mitral regurgitation is present. Mild tricuspid regurgitation present. There is no evidence of pulmonary hypertension. The right v entricular systolic pressure, as measured by Doppler, is 45.07mmHg. Trace/mild (physiologic) pulmonic regurgitation. The aortic root size is normal. There is no pericardial effusion. CONCLUSIONS -------- 1. The left ventricular size is normal. 2. There is mild concentric left ventricular hypertrophy. 3. Overall left ventricular systolic function is low-normal with, an EF between 50 - 55 %. 4. The right ventricle is normal in size. 5. The left atrial size is normal. 6. LA is moderately dilated 34-39 ml/m2 7. The right atrial size is normal. 8. There is mild aortic valve sclerosis. 9. There is mild aortic stenosis present. 10. Peak/mean gradient across the Aortic Valve is 25.03mmHg / 10.97mmHg. 11. Mild mitral annular calcification present. 12. Mild mitral regurgitation is present. 13. Mild tricuspid regurgitation present. 14. There is no evidence of pulmonary hypertension. 15. The right ventricular systolic pressure, as measured by Doppler, is 45.07mmHg. 16. Trace/mild (physiologic) pulmonic regurgitation. 17. The aortic root size is normal. 18. There is no pericardial effusion. BRIDGE OPENER: Samantha Badillo RDCS
--- NOTE | 2018-07-28 14:26 | P.CRDCN ---
History of Present Illness History of present illness: Mrs. Coreas is a pleasant 83-year-old female past medical history significant for COPD, diabetes mellitus, hypertension and anxiety. She denies history of coronary artery disease and has never seen a napkin band wrapper for any reason. She takes Eliquis but is unsure why. She states she was started on this 5-6 months ago. We have been asked to see her in consultation for pre-operative evaluation. She states she woke up yesterday in her normal state of health. She was up walking around the house and states she had a trip and fall at home over her oxygen cord. She states she recalls feeling acute dizzy for a brief moment then next thing she knows she is on the floor. She denies LOC. She states the dizzy feeling was brief and subsided immediately. She denies chest pain, shortness of breath, dizziness, palpitations, nausea, vomiting or diaphoresis. She suffered a fracture of the right femur. Ortho has seen the patient and plans for surgical intervention tomorrow. EKG reveals sinus mechanism with no acute ST or T-wave abnormalities. Chest xray is negative for an acute cardiopulmonary process. Laboratory data reviewed, hgb 9.6, plt 229, sodium 139, potassium 4.0, creatinine 2.09. Current cardiac medications include nifedipine 60 mg daily, Toprol 25 mg daily, lisinopril 2.5 mg daily, Lasix 40 mg twice a day, atorvastatin 20 mg daily and Eliquis 2.5 mg twice a day. Review of Systems At the time of my exam: CONSTITUTIONAL: Denies fever. Denies chills. EYES: Denies blurred vision. Denies vision changes. Denies eye pain. EARS, NOSE, MOUTH & THROAT: Denies headache. Denies sore throat. Denies ear pain. CARDIOVASCULAR: Denies chest pain. Denies shortness of breath. Denies orthopnea. Denies PND. Denies palpitations. RESPIRATORY: Denies cough. GASTROINTESTINAL: Denies abdominal pain. Denies diarrhea. Denies constipation. Denies nausea. Denies vomiting. MUSCULOSKELETAL: Denies myalgias. Complains of pain to the right hip. INTEGUMENTARY: Denies pruitis. Denies rash. NEUROLOGIC: Denies numbness. Denies tingling. Denies weakness. PSYCHIATRIC: Denies anxiety. Denies depression. ENDOCRINE: Denies fatigue. Denies weight change. Denies polydipsia. Denies polyurina. GENITOURINARY: Denies burning, hematuria or urgency with micturation. HEMATOLOGIC: Denies history of anemia. Denies bleeding. Past Medical History Past Medical History: COPD, Diabetes Mellitus, Hypertension, Osteoarthritis (OA) Additional Past Medical History / Comment(s): DIVERTICULITIS(SX), START OF CATARACATS, HOME 02 1 LITER N/C NEEDED, "BOILD ON ABD,DRAINING" History of Any Multi-Drug Resistant Organisms: None Reported Date of last positivie culture/infection: None MDRO Source:: None Past Surgical History: Appendectomy, Hysterectomy Additional Past Surgical History / Comment(s): had colostomy for few months then reversed, "stomach surgery on boils", "for cysts under my arms","water taken off lt knee" Past Anesthesia/Blood Transfusion Reactions: No Reported Reaction Additional Past Anesthesia/Blood Transfusion Reaction / Comment(s): clausterphobia Smoking Status: Former smoker - Past Family History Mother Family Medical History: Cancer Additional Family Medical History / Comment(s): lung cancer Father Family Medical History: COPD Additional Family Medical History / Comment(s): emphysema Medications and Allergies Home Medications Medication Instructions Recorded Confirmed Type ALPRAZolam [Xanax] 1 mg PO TID PRN 07/27/18 07/27/18 History Acetaminophen with Codeine 1 tab PO BID PRN 07/27/18 07/27/18 History [Acetaminophen-Cod #2 Tablet] Apixaban [Eliquis] 2.5 mg PO BID 07/27/18 07/27/18 History Atorvastatin Calcium [Lipitor] 20 mg PO HS 07/27/18 07/27/18 History Doxycycline Hyclate [Vibramycin] 100 mg PO BID 07/27/18 07/27/18 History Furosemide [Lasix] 40 mg PO BID 07/27/18 07/27/18 History Glimepiride [Amaryl] 2 mg PO DAILY 07/27/18 07/27/18 History Insulin Glargine [Lantus] 30 unit SQ HS 07/27/18 07/27/18 History Insulin Lispro [humaLOG Kwikpen] 4 unit SQ AC-TID 07/27/18 07/27/18 History Insulin Lispro [humaLOG Kwikpen] See Protocol SQ AC-TID 07/27/18 07/27/18 History Levothyroxine Sodium [Synthroid] 50 mcg PO DAILY 07/27/18 07/27/18 History Lisinopril [Zestril] 2.5 mg PO DAILY 07/27/18 07/27/18 History Metoprolol Succinate (ER) [Toprol 25 mg PO DAILY 07/27/18 07/27/18 History Xl] NIFEdipine [NIFEdipine ER] 60 mg PO DAILY 07/27/18 07/27/18 History Omeprazole 20 mg PO DAILY 07/27/18 07/27/18 History PARoxetine [Paxil] 10 mg PO DAILY 07/27/18 07/27/18 History Potassium Chloride [Klor-Con 10] 10 meq PO DAILY 07/27/18 07/27/18 History Allergies Allergy/AdvReac Type Severity Reaction Status Date / Time No Known Allergies Allergy Verified 07/27/18 17:41 Physical Exam Vitals: Vital Signs Temp Pulse Pulse Resp BP BP BP 07/28/18 08:23 97.9 F 90 18 151/82 07/28/18 00:30 98.0 F 81 16 136/74 07/27/18 21:51 97.4 F L 79 16 134/63 07/27/18 16:41 98.0 F 84 16 135/78 07/27/18 15:41 97.2 F L 87 18 154/74 07/27/18 15:29 98.3 F 81 20 138/65 07/27/18 14:14 97.1 F L 76 18 146/66 Pulse Ox 07/28/18 08:23 92 L 07/28/18 00:30 92 L 07/27/18 21:51 95 07/27/18 16:41 93 L 07/27/18 15:41 96 07/27/18 15:29 98 07/27/18 14:14 94 L Intake and Output 07/27/18 07/28/18 07/28/18 22:59 06:59 14:59 Intake Total 240 Output Total 400 400 Balance -400 -400 240 Intake: Oral 240 Output: Urine 400 400 Other: Voiding Method Indwelling Catheter Indwelling Catheter Indwelling Catheter Weight 80.286 kg Blood pressure 151/82 heart rate 90 afebrile maintaining oxygen saturation on room air GENERAL: This is a 83-year-old female in no apparent distress at the time of my examination. HEENT: Head is atraumatic, normocephalic. Pupils are equal, round. Sclerae anicteric. Conjunctivae are clear. Mucous membranes of the mouth are moist. Neck is supple. There is no jugular venous distention. No carotid bruit is heard. LUNGS: Clear to auscultation no wheezes, rales or rhonchi. No chest wall tenderness is noted on palpation or with deep breathing. Diminished bilaterally. HEART: Regular rate and rhythm with systolic ejection murmur throughout the precordium, no rubs or gallops. S1 and S2 heard. ABDOMEN: Soft, nontender. Bowel sounds are heard. No organomegaly noted. EXTREMITIES: Trace bilateral lower extremity nonpitting edema and no calf tenderness noted. VASCULAR: Radial and dorsalis pedis pulses palpated, no evidence of clubbing. NEUROLOGIC: Patient is awake, alert and oriented x3. Results 07/28/18 07:21 07/28/18 07:21 Cardiac Enzymes 07/28/18 Range/Units 07:21 AST 20 (14-36) U/L CBC 07/28/18 Range/Units 07:21 WBC 9.6 (3.8-10.6) k/uL RBC 3.65 L (3.80-5.40) m/uL Hgb 9.6 L (11.4-16.0) gm/dL Hct 30.6 L (34.0-46.0) % Plt Count 229 (150-450) k/uL Comprehensive Metabolic Panel 07/28/18 Range/Units 07:21 Sodium 139 (137-145) mmol/L Potassium 4.0 (3.5-5.1) mmol/L Chloride 110 H (98-107) mmol/L Carbon Dioxide 20 L (22-30) mmol/L BUN 81 H (7-17) mg/dL Creatinine 2.09 H (0.52-1.04) mg/dL Glucose 42 L* (74-99) mg/dL Calcium 7.9 L (8.4-10.2) mg/dL AST 20 (14-36) U/L ALT 26 (9-52) U/L Alkaline Phosphatase 115 (38-126) U/L Total Protein 5.6 L (6.3-8.2) g/dL Albumin 2.2 L (3.5-5.0) g/dL Current Medications Generic Name Dose Route Start Last Admin Trade Name Freq PRN Reason Stop Dose Admin Acetaminophen 650 mg 07/27/18 14:47 07/28/18 00:52 Tylenol Tab PO 650 mg Q6HR PRN Administration Fever and/ or Pain Hydrocodone Bitart/Acetaminophen 1 each 07/27/18 14:47 07/28/18 09:57 Irvona 5-325 PO 1 each Q4HR PRN Administration Pain Albuterol/Ipratropium 3 ml 07/27/18 14:47 Duoneb 0.5 Mg-3 Mg/3 Ml Soln INHALATION RT-QID PRN Wheezing Alprazolam 1 mg 07/27/18 19:28 Xanax PO TID PRN Anxiety Atorvastatin Calcium 20 mg 07/27/18 21:00 07/27/18 21:56 Lipitor PO 20 mg HS [facility] Administration Furosemide 40 mg 07/27/18 21:00 07/28/18 09:55 Lasix PO 40 mg BID@0900,1600 [facility] Administration Heparin Sodium (Porcine) 5,000 unit 07/27/18 21:00 07/28/18 09:56 Heparin SQ 5,000 unit Q12HR [facility]ARZANA Administration Insulin Aspart 0 unit 07/27/18 17:30 07/28/18 12:09 Novolog SQ Not Given [facility] Protocol Insulin Detemir 20 unit 07/28/18 21:00 Levemir SQ HS [facility] Levothyroxine Sodium 50 mcg 07/28/18 06:30 07/28/18 05:56 Synthroid PO 50 mcg 0630 [facility] Administration Lisinopril 2.5 mg 07/28/18 09:00 07/28/18 09:56 Zestril PO 2.5 mg DAILY [facility] Administration Metoprolol Succinate 25 mg 07/28/18 09:00 07/28/18 09:55 Toprol Xl PO 25 mg DAILY [facility] Administration Morphine Sulfate 2 mg 07/27/18 14:47 Morphine Sulfate (Inj) IVP Q4H PRN Pain/Discomfort Naloxone HCl 0.2 mg 07/27/18 14:26 Narcan IV Q2M PRN Opioid Reversal Nifedipine 60 mg 07/28/18 09:00 07/28/18 09:55 Procardia Xl PO 60 mg DAILY [facility] Administration Ondansetron HCl 4 mg 07/27/18 14:47 Zofran IVP Q6HR PRN Nausea And Vomiting Pantoprazole Sodium 40 mg 07/28/18 07:30 07/28/18 09:55 Protonix PO 40 mg [id number] [facility] Administration Paroxetine HCl 10 mg 07/28/18 09:00 07/28/18 09:58 Paxil PO 10 mg DAILY [facility] Administration Intake and Output 07/27/18 07/28/18 07/28/18 22:59 06:59 14:59 Intake Total 240 Output Total 400 400 Balance -400 -400 240 Intake: Oral 240 Output: Urine 400 400 Other: Voiding Method Indwelling Catheter Indwelling Catheter Indwelling Catheter Weight 80.286 kg 07/28/18 07:21 07/28/18 07:21 Assessment and Plan Assessment: ASSESSMENT Fall with fracture of right femur, surgery planned for tomorrow. Aortic stenosis Hypertension Chronic renal failure, GFR 22. Stage 4 Diabetes mellitus with hypoglycemia alf anticoagulation unknown reason PLAN Obtain 2D echocardiogram and doppler study to assess cardiac structure and function. Discontinue lasix secondary to renal insufficiency. Hold anti-coagulation. Attempted to reach her PCP office to find out why she is on Eliquis. She has no symptoms of angina or heart failure. She is currently euvolemic. She is an acceptable but increased risk for surgery due to multiple co-morbid conditions. Continue with anti-hypertensives and beta blockers. We will continue to follow post-operatively. Thank you kindly for this consultation. Nurse Practitioner note has been reviewed, I agree with a documented findings and plan of care. Patient was seen and examined.
[2018-07-28 16:57] LABS: Glucose,Whole Blood 107 mg/dL (75-99)
[2018-07-28 20:04] LABS: Glucose,Whole Blood 232 mg/dL (75-99)
[2018-07-28] MEDS: ATORVASTATIN 20 MG TAB PO SCH (20:53)
[2018-07-28] MEDS: INSULIN DETEMIR 100 UNIT/ML 10 ML VIAL SQ SCH (20:54)
--- NOTE | 2018-07-28 23:16 | P.CONS ---
History of Present Illness - Reason for Consult Consult date: 07/28/18 - Chief Complaint fall - History of Present Illness 83-year-old female presents to the emergency center after having an episode of feeling dizzy and finding herself lying on the floor. She had intense pain to her right hip and constantly was brought to Hospital where there was evidence of the right trochanteric fracture. Consequently she is in need of surgical intervention but it is noted that she was on Eliquis and cardiology has been consulted. The patient has been seen by the service in 2016 at which point in time she was having difficulties with a 50 year history of Rash to her abdominal wall as well as to her back. At that time it was evident that she suffered from hydradenitis suppurativa and she was treated with some topical therapy. If the time given her age and medical condition she was not a candidate for any biological type agents. And as long as she was not have any specific illness was not being treated with any specific antimicrobial therapy. Maneuvers to keep the folds free of yeast infection were given. The patient now is in need of surgical intervention to her hip and there were concerns regarding her chronic skin condition. Review of Systems HEENT:Denies headache or acute visual change. Denies sinus or mouth discomforts. Denies neck stiffness or pain. Denies significant oral cavity pain. Denies difficulty on swallowing. Lungs: Denies significant shortness of breath, cough, sputum production, or hemoptysis. Cardiovascular: Denies significant shortness of breath, chest pain, chest wall pain, orthopnea, dyspnea on exertion, syncope Gastrointestinal:Denies nausea, vomiting, diarrhea, constipation, hematemesis, melena, hematochezia. No no significant change of bowel habit noticed. Musculoskeletal: Significant pain to her hip as per the HPI Skin: Chronic condition to the abdominal wall and back Neuro: Denies headache or visual change. Denies any strokelike symptoms but did have an episode of dizziness and what appears to be syncope resulting in her fall Psychiatric:Denies anxiety or depression. Endocrine: He has difficulties with fatigue and chronic obesity Past Medical History Past Medical History: COPD, Diabetes Mellitus, Hypertension, Osteoarthritis (OA) Additional Past Medical History / Comment(s): DIVERTICULITIS(SX), START OF CATARACATS, HOME 02 1 LITER N/C NEEDED, "BOILD ON ABD,DRAINING" History of Any Multi-Drug Resistant Organisms: None Reported Year Discovered:: None MDRO Source:: None Past Surgical History: Appendectomy, Hysterectomy Additional Past Surgical History / Comment(s): had colostomy for few months then reversed, "stomach surgery on boils", "for cysts under my arms","water taken off lt knee" Past Anesthesia/Blood Transfusion Reactions: No Reported Reaction Additional Past Anesthesia/Blood Transfusion Reaction / Comm: clausterphobia Additional Psychological History / Comment(s): and lives independently. Retired. No travel history. No experience. No animals in the home. Tobacco smoker stopping 15 years ago. No history of recreational drug use or significant alcohol use Smoking Status: Former smoker - Past Family History Mother Family Medical History: Cancer Additional Family Medical History / Comment(s): lung cancer Father Family Medical History: COPD Additional Family Medical History / Comment(s): emphysema Medications and Allergies Home Medications and Allergies Comment(s): Current Medications Acetaminophen (Tylenol Tab) 650 mg PO Q6HR PRN PRN Reason: Fever and/ or Pain Last Admin: 07/28/18 00:52 Dose: 650 mg Hydrocodone Bitart/Acetaminophen (Baker 5-325) 1 each PO Q4HR PRN PRN Reason: Pain Last Admin: 07/28/18 18:09 Dose: 1 each Albuterol/Ipratropium (Duoneb 0.5 Mg-3 Mg/3 Ml Soln) 3 ml INHALATION RT-QID PRN PRN Reason: Wheezing Alprazolam (Xanax) 1 mg PO TID PRN PRN Reason: Anxiety Atorvastatin Calcium (Lipitor) 20 mg PO HS [facility] Last Admin: 07/28/18 20:53 Dose: 20 mg Heparin Sodium (Porcine) (Heparin) 5,000 unit SQ Q12HR [facility] Last Admin: 07/28/18 20:53 Dose: 5,000 unit Insulin Aspart (Novolog) 0 unit SQ [facility]; Protocol Last Admin: 07/28/18 20:54 Dose: 3 unit Insulin Detemir (Levemir) 20 unit SQ HS [facility] Last Admin: 07/28/18 20:54 Dose: 20 unit Levothyroxine Sodium (Synthroid) 50 mcg PO 0630 [facility] Last Admin: 07/28/18 05:56 Dose: 50 mcg Lisinopril (Zestril) 2.5 mg PO DAILY [facility] Last Admin: 07/28/18 09:56 Dose: 2.5 mg Metoprolol Succinate (Toprol Xl) 25 mg PO DAILY [facility] Last Admin: 07/28/18 09:55 Dose: 25 mg Morphine Sulfate (Morphine Sulfate (Inj)) 2 mg IVP Q4H PRN PRN Reason: Pain/Discomfort Naloxone HCl (Narcan) 0.2 mg IV Q2M PRN PRN Reason: Opioid Reversal Nifedipine (Procardia Xl) 60 mg PO DAILY [facility] Last Admin: 07/28/18 09:55 Dose: 60 mg Ondansetron HCl (Zofran) 4 mg IVP Q6HR PRN PRN Reason: Nausea And Vomiting Pantoprazole Sodium (Protonix) [facility] Last Admin: 07/28/18 09:55 Dose: 40 mg Paroxetine HCl (Paxil) 10 mg PO DAILY [facility] Last Admin: 07/28/18 09:58 Dose: 10 mg Home Medications Medication Instructions Recorded Confirmed Type ALPRAZolam [Xanax] 1 mg PO TID PRN 07/27/18 07/27/18 History Acetaminophen with Codeine 1 tab PO BID PRN 07/27/18 07/27/18 History [Acetaminophen-Cod #2 Tablet] Apixaban [Eliquis] 2.5 mg PO BID 07/27/18 07/27/18 History Atorvastatin Calcium [Lipitor] 20 mg PO 07/27/18 07/27/18 History Doxycycline Hyclate [Vibramycin] 100 mg PO BID 07/27/18 07/27/18 History Furosemide [Lasix] 40 mg PO BID 07/27/18 07/27/18 History Glimepiride [Amaryl] 2 mg PO DAILY 07/27/18 07/27/18 History Insulin Glargine [Lantus] 30 unit SQ 07/27/18 07/27/18 History Insulin Lispro [humaLOG Kwikpen] 4 unit SQ AC-TID 07/27/18 07/27/18 History Insulin Lispro [humaLOG Kwikpen] See Protocol SQ AC-TID 07/27/18 07/27/18 History Levothyroxine Sodium [Synthroid] 50 mcg PO DAILY 07/27/18 07/27/18 History Lisinopril [Zestril] 2.5 mg PO DAILY 07/27/18 07/27/18 History Metoprolol Succinate (ER) [Toprol 25 mg PO DAILY 07/27/18 07/27/18 History Xl] NIFEdipine [NIFEdipine ER] 60 mg PO DAILY 07/27/18 07/27/18 History Omeprazole 20 mg PO DAILY 07/27/18 07/27/18 History PARoxetine [Paxil] 10 mg PO DAILY 07/27/18 07/27/18 History Potassium Chloride [Klor-Con 10] 10 meq PO DAILY 07/27/18 07/27/18 History Allergies Allergy/AdvReac Type Severity Reaction Status Date / Time No Known Allergies Allergy Verified 07/27/18 17:41 Physical Exam Vitals: Vital Signs Temp Pulse Resp BP Pulse Ox 07/28/18 19:15 99.1 F 70 14 136/63 90 L 07/28/18 15:00 98.8 F 70 12 128/68 92 L 07/28/18 08:23 97.9 F 90 18 151/82 92 L 07/28/18 00:30 98.0 F 81 16 136/74 92 L Intake and Output 07/28/18 07/28/18 07/28/18 06:59 14:59 22:59 Intake Total 240 Output Total 400 1300 Balance -400 240 -1300 Intake: Oral 240 Output: Urine 400 1300 Uretheral (Mae) 1300 Other: Voiding Method Indwelling Catheter Indwelling Catheter 83-year-old female who has mild obesity but significant abdominal pannus HEENT: Anicteric conjunctiva are pink and moist nasal mucosa grossly intact without significant lesions, there is no thrush. Neck: The neck is supple without significant lymphadenopathy or thyromegaly. Lungs: Good bilateral air entry without significant crackles or wheezing. There is no significant bronchial sounds. There is no egophony or dullness. Heart: Regular rate and rhythm with an audible S1-S2, no S3 no S4. There is no significant murmur click or rub, PMI was nondisplaced. Abdomen: Positive bowel sounds soft and nontender without palpable masses or organomegaly. There was no guarding or rebound. Extremities: The upper extremities are intact with intact IV site. Snippy and pain to the right hip at the fracture site. Neuro: Awake alert oriented to person place and time. There are no acute new gross focal sensory motor deficits. Skin evidence of the extensive changes on the abdominal wall pannus as well as on the lower back where she has the chronic changes of her chronic inflammatory skin condition. Results CBC & Chem 7: 07/28/18 07:21 07/28/18 07:21 Labs: Abnormal Lab Results - Last 24 Hours (Table) 07/27/18 07/28/18 07/28/18 Range/Units 12:32 07:21 07:21 RBC 3.65 L (3.80-5.40) m/uL Hgb 9.6 L (11.4-16.0) gm/dL Hct 30.6 L (34.0-46.0) % RDW 17.7 H (11.5-15.5) % Chloride 110 H (98-107) mmol/L Carbon Dioxide 20 L (22-30) mmol/L BUN 81 H (7-17) mg/dL Creatinine 2.09 H (0.52-1.04) mg/dL Glucose 42 L* (74-99) mg/dL POC Glucose (mg/dL) (75-99) mg/dL Hemoglobin A1c 7.9 H (4.0-6.0) % Calcium 7.9 L (8.4-10.2) mg/dL Total Protein 5.6 L (6.3-8.2) g/dL Albumin 2.2 L (3.5-5.0) g/dL 07/28/18 07/28/18 07/28/18 Range/Units 07:26 07:47 08:29 RBC (3.80-5.40) m/uL Hgb (11.4-16.0) gm/dL Hct (34.0-46.0) % RDW (11.5-15.5) % Chloride (98-107) mmol/L Carbon Dioxide (22-30) mmol/L BUN (7-17) mg/dL Creatinine (0.52-1.04) mg/dL Glucose (74-99) mg/dL POC Glucose (mg/dL) 49 L 70 L 145 H (75-99) mg/dL Hemoglobin A1c (4.0-6.0) % Calcium (8.4-10.2) mg/dL Total Protein (6.3-8.2) g/dL Albumin (3.5-5.0) g/dL 07/28/18 07/28/18 07/28/18 Range/Units 11:49 16:54 20:02 RBC (3.80-5.40) m/uL Hgb (11.4-16.0) gm/dL Hct (34.0-46.0) % RDW (11.5-15.5) % Chloride (98-107) mmol/L Carbon Dioxide (22-30) mmol/L BUN (7-17) mg/dL Creatinine (0.52-1.04) mg/dL Glucose (74-99) mg/dL POC Glucose (mg/dL) 106 H 107 H 232 H (75-99) mg/dL Hemoglobin A1c (4.0-6.0) % Calcium (8.4-10.2) mg/dL Total Protein (6.3-8.2) g/dL Albumin (3.5-5.0) g/dL Laboratory Results WBC 9.6 k/uL (3.8-10.6) 07/28/18 07:21 RBC 3.65 m/uL (3.80-5.40) L 07/28/18 07:21 Hgb 9.6 gm/dL (11.4-16.0) L 07/28/18 07:21 Hct 30.6 % (34.0-46.0) L 07/28/18 07:21 MCV 83.6 fL (80.0-100.0) 07/28/18 07:21 MCH 26.2 pg (25.0-35.0) 07/28/18 07:21 MCHC 31.4 g/dL (31.0-37.0) 07/28/18 07:21 RDW 17.7 % (11.5-15.5) H 07/28/18 07:21 Plt Count 229 k/uL (150-450) 07/28/18 07:21 Neutrophils % 71 % 07/28/18 07:21 Lymphocytes % 20 % 07/28/18 07:21 Monocytes % 7 % 07/28/18 07:21 Eosinophils % 1 % 07/28/18 07:21 Basophils % 0 % 07/28/18 07:21 Neutrophils # 6.8 k/uL (1.3-7.7) 09/13/18 07:21 Lymphocytes # 1.9 k/uL (1.0-4.8) 07/28/18 07:21 Monocytes # 0.6 k/uL (0-1.0) 07/28/18 07:21 Eosinophils # 0.1 k/uL (0-0.7) 07/28/18 07:21 Basophils # 0.0 k/uL (0-0.2) 07/28/18 07:21 Anisocytosis Slight 07/28/18 07:21 PT 10.6 sec (9.0-12.0) 07/27/18 12:32 INR 1.1 (<1.2) 07/27/18 12:32 APTT 24.6 sec (22.0-30.0) 07/27/18 12:32 Sodium 139 mmol/L (137-145) 07/28/18 07:21 Potassium 4.0 mmol/L (3.5-5.1) 07/28/18 07:21 Chloride 110 mmol/L (98-107) H 07/28/18 07:21 Carbon Dioxide 20 mmol/L (22-30) L 07/28/18 07:21 Anion Gap 9 mmol/L 07/28/18 07:21 BUN 81 mg/dL (7-17) H 07/28/18 07:21 Creatinine 2.09 mg/dL (0.52-1.04) H 07/28/18 07:21 Est GFR (CKD-EPI)AfAm 25 (>60 ml/min/1.73 sqM) 07/28/18 07:21 Est GFR (CKD-EPI)NonAf 22 (>60 ml/min/1.73 sqM) 07/28/18 07:21 Glucose 42 mg/dL (74-99) L* 07/28/18 07:21 POC Glucose (mg/dL) 232 mg/dL (75-99) H 07/28/18 20:02 POC Glu Land [employer] ID Inés Gibbs 07/28/18 20:[address] Glu mg/dL 180 07/27/18 12:32 Hemoglobin A1c 7.9 % (4.0-6.0) H 07/27/18 12:32 Calcium 7.9 mg/dL (8.4-10.2) L 07/28/18 07:21 Total Bilirubin 0.3 mg/dL (0.2-1.3) 07/28/18 07:21 AST 20 U/L (14-36) 07/28/18 07:21 ALT 26 U/L (9-52) 07/28/18 07:21 Alkaline Phosphatase 115 U/L (38-126) 07/28/18 07:21 Total Protein 5.6 g/dL (6.3-8.2) L 07/28/18 07:21 Albumin 2.2 g/dL (3.5-5.0) L 07/28/18 07:21 Comments: Evidence of the comminuted right femur fracture Assessment and Plan (1) Fracture, subtrochanteric, right femur, closed Current Visit: Yes Status: Acute Code(s): S72.21XA - DISPLACED SUBTROCHANTERIC FRACTURE OF RIGHT FEMUR, INIT SNOMED Code(s): 007357131 (2) Obesity (BMI 30.0-34.9) Current Visit: Yes Status: Acute Code(s): E66.9 - OBESITY, UNSPECIFIED SNOMED Code(s): 207703994 (3) Hidradenitis suppurativa Narrative/Plan: 83-year-old woman with a long-standing history of hidradenitis suppurativa which is a chronic inflammatory skin condition resulting in changes to the skin as well as cystic structures that draining a thick sometimes foul smelling material. Extensive surgical debridements and potentially laser procedures can be done to help this chronic condition, the patient however has had for 50 years and has been stable over time. The patient may proceed to her repair of her right hip with standard preoperative cleansing and careful wound care postoperatively. Her biggest risk of infection is related to her chronic diabetes mellitus it is only modestly controlled. Improved glucose control in the perioperative timeframe will provide the greatest amount of protection. A maneuvers to avoid cross contamination will also be helpful, a dressing that seals the site should be utilized to protect it for the first 7 days after surgery. Routine surgical prophylaxis to be given. Does not require ongoing antibiotic therapy for her chronic inflammatory skin condition. Current Visit: Yes Status: Acute Code(s): L73.2 - HIDRADENITIS SUPPURATIVA SNOMED Code(s): 04512345
[2018-07-29 00:10] LABS: Glucose,Whole Blood 200 mg/dL (75-99)
[2018-07-29] MEDS: HYDROcodone/APAP 5-325MG 1 EACH TAB PO PRN (05:01)
[2018-07-29 05:36] LABS: Anisocytosis Slight; Basophils % (A) 0 %; Eosinophils # (A) 0.1 k/uL (0-0.7); Eosinophils % (A) 1 %; HGB 10.2 gm/dL (11.4-16.0); Lymphocytes # (A) 1.8 k/uL (1.0-4.8); Lymphocytes % (A) 17 %; MCH 26.3 pg (25.0-35.0); MCHC 31.7 g/dL (31.0-37.0); MCV 82.8 fL (80.0-100.0); Mean Platelet Volume 8.4; Monocytes # (A) 0.6 k/uL (0-1.0); Monocytes % (A) 6 %; Neutrophils # (A) 7.9 k/uL (1.3-7.7); Neutrophils % (A) 75 %; Platelet Count 243 k/uL (150-450); RBC 3.87 m/uL (3.80-5.40); RDW 17.8 % (11.5-15.5); WBC 10.5 k/uL (3.8-10.6)
[2018-07-29 05:44] LABS: Albumin 2.5 g/dL (3.5-5.0); Calcium 7.9 mg/dL (8.4-10.2); Potassium 4.5 mmol/L (3.5-5.1); Total Bilirubin 0.4 mg/dL (0.2-1.3)
[2018-07-29] MEDS: LEVOTHYROXINE 50 MCG TAB PO SCH (06:01)
[2018-07-29 07:08] LABS: Glucose,Whole Blood 100 mg/dL (75-99)
[2018-07-29] MEDS: INSULIN ASPART 100 UNIT/ML 1 ML 10 ML VIAL SQ SCH ×4 (07:09→20:55)
[2018-07-29] MEDS: METOPROLOL SUCCINATE (ER) 25 MG TAB.ER.24H PO SCH (08:11)
[2018-07-29] MEDS: LISINOPRIL 2.5 MG TAB PO SCH (08:11)
[2018-07-29] MEDS: PANTOPRAZOLE 40 MG TABLET PO SCH (08:19)
[2018-07-29] MEDS: PARoxetine 10 MG TAB PO SCH (08:19)
--- NOTE | 2018-07-29 10:48 | P.PN ---
Subjective Patient had uneventful night. Except of pain in the right hip otherwise no any shortness of breath chest pain cough expectoration abdominal pain. Patient has long-standing history of diabetes with treated with insulin, CKD presumed related to diabetic nephropathy and skin changes due to hidradenitis suppurativa. Interestingly she has low albumin although she herself does not appear to be malnourished and she reports usually good appetite and drinking protein supplements. Her A1c is 7.9 and her blood glucoses been reasonably controlled here in the hospital and patient reports having very high glucose couple years ago but lately she's been on more intensive treatment which been working very well for her. REVIEW OF SYSTEMS: CONSTITUTIONAL: No fever or chills HEENT: No changes in vision or voice CARDIOVASCULAR: no chest pain or abnormal heart beats, or any swelling in ankles or feet. RESPIRATORY: No wheezing or coughing. GASTROINTESTINAL: No abdominal pain, no nausea no vomiting no constipation or diarrhea GENITOURINARY: no any urinary urgency, frequency or burning, and there has been no blood in her urine. no flank pain. MUSCULOSKELETAL: She notes full range of motion of all her joints without pain or swelling. NEUROLOGICAL: , no headache. no vision changes, or fainting. No numbness or tingling. Objective - Vital Signs Vital signs: Vital Signs Temp 98.7 F 07/29/18 07:06 Pulse 76 07/29/18 07:06 Resp 16 07/29/18 07:06 BP 147/71 07/29/18 07:06 Pulse Ox 94 L 07/29/18 02:46 Intake & Output 07/28/18 07/29/18 07/29/18 18:59 06:59 18:59 Intake Total 240 160 Output Total 1300 550 400 Balance -1060 -390 -400 Intake: Intake, IV Titration 160 Amount Sodium Chloride 0.9% 1, 60 000 ml @ 20 mls/hr IV . Q24H ONE Rx#:[id number] Sodium Chloride 0.9% 1, 100 000 ml @ 50 mls/hr IV . Q20H ONE Rx#:[id number] Oral 240 Output: Urine 1300 550 400 Uretheral (Mae) 1300 550 400 Other: Voiding Method Indwelling Catheter Indwelling Catheter Indwelling Catheter - Exam Vital Signs: I have reviewed the vital signs. GENERAL: Well-nourished, Well-developed , no apparent distress, cooperative Eyes: PERRL, extraoculry movements intact, clear conjunctiva Head: : Atraumatic external nose and ears, oropharyngeal mucosa is moist without lesions or exudates Neck: Symmetric, trachea midline, No thyromegaly, no masses or neck vain pulsation, no neck rigidity CVS: +S1/S2, No murmurs or gallops. Peripheral pulses 2+ and equal in all extremities. RESP: Unlabored respiratory effort. Clear to auscultation bilaterally. Abdomen: Bowel sounds present in all 4 quadrants, Soft to palpation, Nontender/ Nondistended, No hepatosplenomegaly, no hernias or masses, no CVA tnderness Musculoskeletal: Extremities w/o deformity, No cyanosis or clubbing, no joint swelling Skin: Warm, Dry. No rashes or lesions Neuro: brilliandeer lopper II-XII grossly intact, motor strenght 5/5 i upper and lower extremities, no clonus, patellar DTRs 2+ and sympetrical Psych: Awake, Alert, & Oriented (AAO) x3 Appropriate mood and affect - Labs CBC & Chem 7: 07/29/18 05:14 07/29/18 05:14 Labs: Abnormal Lab Results - Last 24 Hours (Table) 07/28/18 07/28/18 07/28/18 Range/Units 11:49 16:54 20:02 Hgb (11.4-16.0) gm/dL Hct (34.0-46.0) % RDW (11.5-15.5) % Neutrophils # (1.3-7.7) k/uL Sodium (137-145) mmol/L Carbon Dioxide (22-30) mmol/L BUN (7-17) mg/dL Creatinine (0.52-1.04) mg/dL Glucose (74-99) mg/dL POC Glucose (mg/dL) 106 H 107 H 232 H (75-99) mg/dL Calcium (8.4-10.2) mg/dL Alkaline Phosphatase (38-126) U/L Total Protein (6.3-8.2) g/dL Albumin (3.5-5.0) g/dL 07/29/18 07/29/18 07/29/18 Range/Units 00:05 05:14 05:14 Hgb 10.2 L (11.4-16.0) gm/dL Hct 32.0 L (34.0-46.0) % RDW 17.8 H (11.5-15.5) % Neutrophils # 7.9 H (1.3-7.7) k/uL Sodium 136 L (137-145) mmol/L Carbon Dioxide 21 L (22-30) mmol/L BUN 72 H (7-17) mg/dL Creatinine 1.97 H (0.52-1.04) mg/dL Glucose 102 H (74-99) mg/dL POC Glucose (mg/dL) 200 H (75-99) mg/dL Calcium 7.9 L (8.4-10.2) mg/dL Alkaline Phosphatase 131 H (38-126) U/L Total Protein 6.0 L (6.3-8.2) g/dL Albumin 2.5 L (3.5-5.0) g/dL 07/29/18 Range/Units 07:06 Hgb (11.4-16.0) gm/dL Hct (34.0-46.0) % RDW (11.5-15.5) % Neutrophils # (1.3-7.7) k/uL Sodium (137-145) mmol/L Carbon Dioxide (22-30) mmol/L BUN (7-17) mg/dL Creatinine (0.52-1.04) mg/dL Glucose (74-99) mg/dL POC Glucose (mg/dL) 100 H (75-99) mg/dL Calcium (8.4-10.2) mg/dL Alkaline Phosphatase (38-126) U/L Total Protein (6.3-8.2) g/dL Albumin (3.5-5.0) g/dL Assessment and Plan Plan: 1. Right hip fracture Patient is planned for open reduction and intratrochanteric nail insertion today She's been cleared by cardiology to proceed Usual care with pain control DVT prophylaxis and physical occupational therapy She will need likely placement to subacute rehab She will need workup for osteoporosis on outpatient basis May start vitamin D and calcium supplementation while here 2. Type 2 diabetes mellitus with long-term use of insulin Her A1c is 7.9 which given her age and comorbidities is a reasonable level Her sugar been better today and reasonably controlled with a sliding scale of this will be continued for now 3. CKD stage III Creatinine has been stable Electrolytes normal Urine output adequate Monitor urine output and renal function closely We will obtain urine protein to assess for nephrotic syndrome Given anemia renal insufficiency and fragility fracture I will obtain protein electrophoresis 4. Hypoalbuminemia This is interesting as patient does not clinically appear to be significantly more nourished I will obtain her UA and protein creatinine ratio to rule out nephrotic syndrome 5. Hidradenitis suppurativa Local care as outlined by infectious disease 6. Anemia, normocytic although with increased RDW Likely related to renal insufficiency Obtain iron panel Also we'll check electrophoresis of protein
[2018-07-29] MEDS: HEPARIN SODIUM,PORCINE 5,000 UNIT/ML 1 ML VIAL SQ SCH ×2 (11:23→20:43)
[2018-07-29] MEDS ORDERED: HYDROmorphone 0.5 MG/0.5 ML SYRINGE IVP PRN (11:33)
[2018-07-29] MEDS ORDERED: LIDOCAINE 1% 20 ML VIAL (10MG/ML) FOR IV START INTRADERMA PRN (11:33)
[2018-07-29] MEDS: LACTATED RINGERS 1,000 ML IV SCH ×3 (11:41→21:45)
[2018-07-29 11:51] LABS: Glucose,Whole Blood 62 mg/dL (75-99)
[2018-07-29] MEDS ORDERED: DEXTROSE 50%-WATER 50 ML SYRINGE IVP ONE (11:54)
[2018-07-29 12:12] LABS: Glucose,Whole Blood 114 mg/dL (75-99)
[2018-07-29] MEDS ORDERED: ceFAZolin 2 GM in SODIUM CHLORIDE 0.9% 100 ML IVPB ONE (12:25)
[2018-07-29] MEDS ORDERED: NALOXONE 0.4 MG/ML 1 ML VIAL IV PRN (12:25)
[2018-07-29] MEDS ORDERED: HYDROcodone/APAP 5-325MG 1 EACH TAB PO PRN (12:25)
[2018-07-29] MEDS ORDERED: HYDROmorphone 1 MG/ML 1 ML SYRINGE IVP PRN ×3 (12:25)
[2018-07-29] MEDS ORDERED: MAGNESIUM HYDROXIDE 2,400 MG/10 ML CUP PO PRN (12:25)
[2018-07-29] MEDS ORDERED: ceFAZolin IN SWFI 2 GM/20 ML SYRINGE IVP ONE (12:30)
[2018-07-29] MEDS ORDERED: fentaNYL (PF) 50 MCG/ML 2 ML AMP ONE (12:44)
[2018-07-29] MEDS ORDERED: SUCCINYLCHOLINE CHLORIDE 100 MG/5 ML SYR IV ONE (12:44)
[2018-07-29] MEDS ORDERED: NEOSTIGMINE 1 MG/ML 10 ML VIAL ONE (12:44)
[2018-07-29] MEDS ORDERED: GLYCOPYRROLATE 0.2 MG/ML 2 ML VIAL ONE (12:44)
[2018-07-29] MEDS ORDERED: ePHEDrine SULFATE/0.9% NACL/PF 50 MG/5 ML SYRINGE IV ONE (12:44)
[2018-07-29] MEDS ORDERED: KETAMINE 10 MG/ML 20 ML VIAL ONE (12:44)
[2018-07-29] MEDS ORDERED: LIDOCAINE 1% INJ 10MG/ML (20 ML MDV) ONE (12:44)
[2018-07-29] MEDS ORDERED: MIDAZOLAM 2 MG/2 ML VIAL ONE (12:44)
[2018-07-29] MEDS ORDERED: PROPOFOL 10 MG/ML 20 ML VIAL IV ONE (12:44)
[2018-07-29] MEDS ORDERED: ROCURONIUM BROMIDE 10 MG/ML 10 ML VIAL IV ONE (12:44)
[2018-07-29] MEDS ORDERED: PHENYLEPHRINE-0.9% NACL SYG 1 MG/10 ML SYRINGE ONE (12:44)
[2018-07-29] MEDS ORDERED: ceFAZolin 1,000 MG in SODIUM CHLORIDE 0.9% 1,000 ML IRRIGATION ONE (13:23)
--- NOTE | 2018-07-29 14:37 | FL ---
Fluoroscopy INDICATION: Pain FINDINGS: Fluoroscopy time: 1 minute 34 seconds. Images obtained: 4. IMPRESSIONS: 1. Documentation of fluoroscopy.
--- NOTE | 2018-07-29 14:43 | XR ---
Fluoroscopy INDICATION: Pain FINDINGS: Images obtained: 4. IMPRESSIONS: 1. Documentation of fluoroscopy.
[2018-07-29 14:56] LABS: Glucose,Whole Blood 91 mg/dL (75-99)
[2018-07-29] MEDS ORDERED: ceFAZolin 3 GM in SODIUM CHLORIDE 0.9% 100 ML IVPB SCH (16:00)
[2018-07-29 16:57] LABS: Anisocytosis Slight; Basophils % (A) 0 %; Eosinophils # (A) 0.1 k/uL (0-0.7); Eosinophils % (A) 1 %; HCT 32.9 % (34.0-46.0); HGB 10.4 gm/dL (11.4-16.0); Lymphocytes # (A) 1.1 k/uL (1.0-4.8); Lymphocytes % (A) 8 %; MCH 26.3 pg (25.0-35.0); MCHC 31.7 g/dL (31.0-37.0); MCV 82.9 fL (80.0-100.0); Monocytes # (A) 0.6 k/uL (0-1.0); Monocytes % (A) 4 %; Neutrophils # (A) 12.7 k/uL (1.3-7.7); Neutrophils % (A) 87 %; Platelet Count 223 k/uL (150-450); RBC 3.96 m/uL (3.80-5.40); RDW 17.8 % (11.5-15.5); WBC 14.7 k/uL (3.8-10.6)
[2018-07-29 17:25] LABS: Glucose,Whole Blood 75 mg/dL (75-99)
[2018-07-29] MEDS: SENNOSIDES-DOCUSATE SODIUM 1 EACH TAB PO SCH (20:43)
[2018-07-29] MEDS: ATORVASTATIN 20 MG TAB PO SCH (20:44)
[2018-07-29] MEDS: ALPRAZolam 1 MG TAB PO PRN (20:47)
[2018-07-29] MEDS: INSULIN DETEMIR 100 UNIT/ML 10 ML VIAL SQ SCH (20:53)
[2018-07-29 21:02] LABS: Glucose,Whole Blood 170 mg/dL (75-99)
[2018-07-29] MEDS ORDERED: TEMAZEPAM 15 MG CAP PO PRN (22:00)
[2018-07-29] MEDS: ceFAZolin IN SWFI 2 GM/20 ML SYRINGE IVP SCH (23:33)
[2018-07-30] MEDS: LEVOTHYROXINE 50 MCG TAB PO SCH (05:04)
[2018-07-30 05:06] LABS: Glucose,Whole Blood 71 mg/dL (75-99)
[2018-07-30 07:02] LABS: Glucose,Whole Blood 68 mg/dL (75-99)
[2018-07-30 07:12] LABS: Anisocytosis Slight; Basophils % (A) 0 %; Eosinophils # (A) 0.2 k/uL (0-0.7); Eosinophils % (A) 2 %; HCT 29.3 % (34.0-46.0); HGB 9.1 gm/dL (11.4-16.0); Hypochromasia Slight; Lymphocytes # (A) 1.2 k/uL (1.0-4.8); Lymphocytes % (A) 14 %; MCH 26.6 pg (25.0-35.0); MCHC 31.2 g/dL (31.0-37.0); MCV 85.2 fL (80.0-100.0); Mean Platelet Volume 8.4; Monocytes # (A) 0.5 k/uL (0-1.0); Monocytes % (A) 6 %; Neutrophils # (A) 6.9 k/uL (1.3-7.7); Neutrophils % (A) 77 %; Platelet Count 215 k/uL (150-450); RBC 3.44 m/uL (3.80-5.40); RDW 17.7 % (11.5-15.5)
[2018-07-30 07:35] LABS: Albumin 2.1 g/dL (3.5-5.0); Calcium 7.9 mg/dL (8.4-10.2); Potassium 4.2 mmol/L (3.5-5.1); Total Bilirubin 0.4 mg/dL (0.2-1.3); Total Protein 5.2 g/dL (6.3-8.2)
[2018-07-30] MEDS: INSULIN ASPART 100 UNIT/ML 1 ML 10 ML VIAL SQ SCH ×4 (07:43→20:20)
[2018-07-30 07:44] LABS: Glucose,Whole Blood 82 mg/dL (75-99)
[2018-07-30] MEDS: HEPARIN SODIUM,PORCINE 5,000 UNIT/ML 1 ML VIAL SQ SCH ×2 (07:50→20:21)
[2018-07-30] MEDS: HYDROcodone/APAP 5-325MG 1 EACH TAB PO PRN ×2 (07:50→14:05)
[2018-07-30] MEDS: ceFAZolin IN SWFI 2 GM/20 ML SYRINGE IVP SCH (07:50)
[2018-07-30] MEDS: PANTOPRAZOLE 40 MG TABLET PO SCH (07:51)
[2018-07-30] MEDS: PARoxetine 10 MG TAB PO SCH (07:51)
[2018-07-30] MEDS: LISINOPRIL 2.5 MG TAB PO SCH (07:51)
[2018-07-30] MEDS: METOPROLOL SUCCINATE (ER) 25 MG TAB.ER.24H PO SCH (07:51)
[2018-07-30] MEDS: LACTATED RINGERS 1,000 ML IV SCH ×3 (07:56→15:20)
[2018-07-30 08:18] LABS: Reticulocyte % 3.1 % (0.5-2.0)
--- NOTE | 2018-07-30 10:33 | P.PN ---
Progress Note - Text Progress Note Date: 07/30/18 Patient is a pleasant 83-year-old female who is seen and examined at bedside for follow-up evaluation after undergoing a right lung IT nail for comminuted right subtrochanteric fracture. Surgery was performed yesterday, 07/29/[address] Sawyer. Patient currently has a boot cuff intact over the right lower extremity. She is planning to work with physical therapy today. Mae catheter continues to be intact. She is eating and voiding without difficulty. She does not have any abdominal pain. She does feel her pain has been controlled. She has not been out of bed following surgical intervention. He is currently on heparin for anticoagulation postoperatively. Patient does have a history of hidradenitis over the past 50 [address] She has [address] Velez in the past. Consultation has been placed with Dr. Velez. Physical Exam Intramedullary Rodding for Intertrochanteric Fracture: Status post surgical day number 1 Patient is examined lying in bed Patient is awake and alert, and oriented 3 Vital signs stable Good chest excursion with deep inspiration and expiration Abdomen soft nontender No signs or symptoms of DVT; no calf pain Boot cuff intact right lower extremity Dressing of the right hip is clean, dry, and intact; no erythema, purulence, or signs of infection Dorsiflexion, plantarflexion, and extensor hallucis longus positive sustained bilaterally Neurovascularly intact bilateral lower extremities Capillary refill less than 2 seconds bilateral lower extremities Mae catheter intact Assessment: Status post long right intramedullary nail fixation for right subtrochanteric hip fracture Status post fall Straight multiple falls History of hidradenitis Plan: 1. Patient to remain toe-touch weightbearing on the right lower extremity; patient may work with physical therapy to increase mobility and ambulation 2. Keep dressing over the right hip clean, dry, and intact 3. Discontinue Mae catheter when patient is able to increase mobility and ambulation 4. Continue pain control 5. Continue with anticoagulation therapy with heparin as prescribed by medicine 6. Medicine to continue following the patient for their other medical diagnosis 7. We'll continue to follow the patient closely; depending on the patient's progress, we may plan for discharge as early as 08/01/2018 to a rehabilitation facility 8. Patient can follow-up with Dr. Sawyer at [facility] in 2-3 weeks following discharge
[2018-07-30 11:18] LABS: Glucose,Whole Blood 111 mg/dL (75-99)
[2018-07-30] MEDS: MULTIVITAMINS, THERA 1 EACH TAB PO SCH (12:19)
--- NOTE | 2018-07-30 14:22 | P.PN ---
Subjective Patient is status post open reduction and intramedullary nail. Procedure was done yesterday. She tolerated very well and reports today that she's feeling much better and the pain is significantly better. She is tolerating diet. No nausea vomiting abdominal pain chest pain or shortness of breath. CONSTITUTIONAL: No fever or chills HEENT: No changes in vision or voice CARDIOVASCULAR: no chest pain or abnormal heart beats, or any swelling in ankles or feet. RESPIRATORY: No wheezing or coughing. GASTROINTESTINAL: No abdominal pain, no nausea no vomiting no constipation or diarrhea GENITOURINARY: no any urinary urgency, frequency or burning, and there has been no blood in her urine. no flank pain. MUSCULOSKELETAL: She notes full range of motion of all her joints without pain or swelling. NEUROLOGICAL: , no headache. no vision changes, or fainting. No numbness or tingling. Objective - Vital Signs Vital signs: Vital Signs Temp 98.2 F 07/30/18 14:17 Pulse 62 07/30/18 14:17 Resp 16 07/30/18 14:17 BP 129/65 07/30/18 14:17 Pulse Ox 95 07/30/18 14:17 Intake & Output 07/29/18 07/30/18 07/30/18 18:59 06:59 18:59 Intake Total 1636 1600 1340 Output Total 800 400 Balance 836 1600 940 Intake: IV 1101 Intake, IV Titration 210 1600 Amount Lactated Ringers 1,000 ml 1600 @ 100 mls/hr IV .Q10H [facility] Rx#:[id number] Lactated Ringers 1,000 ml 210 @ 20 mls/hr IV .Q24H [facility] Rx#:[id number] Oral 325 1340 Output: Urine 700 400 Uretheral (Mae) 400 400 Estimated Blood Loss 100 Other: Voiding Method Indwelling Catheter Indwelling Catheter Indwelling Catheter - Exam Vital Signs: I have reviewed the vital signs. GENERAL: Well-nourished, Well-developed , no apparent distress, cooperative Eyes: PERRL, extraoculry movements intact, clear conjunctiva Head: : Atraumatic external nose and ears, oropharyngeal mucosa is moist without lesions or exudates Neck: Symmetric, trachea midline, No thyromegaly, no masses or neck vain pulsation, no neck rigidity CVS: +S1/S2, No murmurs or gallops. Peripheral pulses 2+ and equal in all extremities. RESP: Unlabored respiratory effort. Clear to auscultation bilaterally. Abdomen: Bowel sounds present in all 4 quadrants, Soft to palpation, Nontender/ Nondistended, No hepatosplenomegaly, no hernias or masses, no CVA tnderness Musculoskeletal: Extremities w/o deformity, No cyanosis or clubbing, no joint swelling Skin: Warm, Dry. No rashes or lesions Neuro: supervisor insecticide II-XII grossly intact, motor strenght 5/5 i upper and lower extremities, no clonus, patellar DTRs 2+ and sympetrical Psych: Awake, Alert, & Oriented (AAO) x3 Appropriate mood and affect - Labs CBC & Chem 7: 07/30/18 06:29 07/30/18 06:29 Labs: Abnormal Lab Results - Last 24 Hours (Table) 07/29/18 07/29/18 07/29/18 Range/Units 16:35 17:15 20:51 WBC 14.7 H (3.8-10.6) k/uL RBC (3.80-5.40) m/uL Hgb 10.4 L (11.4-16.0) gm/dL Hct 32.9 L (34.0-46.0) % RDW 17.8 H (11.5-15.5) % Neutrophils # 12.7 H (1.3-7.7) k/uL Retic Count (0.5-2.0) % Sodium (137-145) mmol/L Carbon Dioxide (22-30) mmol/L BUN (7-17) mg/dL Creatinine (0.52-1.04) mg/dL Glucose (74-99) mg/dL POC Glucose (mg/dL) 170 H (75-99) mg/dL Calcium (8.4-10.2) mg/dL Total Protein (6.3-8.2) g/dL Albumin (3.5-5.0) g/dL U Random Total Protein 57 H (<12) mg/dL 07/30/18 07/30/18 07/30/18 Range/Units 05:05 06:29 06:29 WBC (3.8-10.6) k/uL RBC 3.44 L (3.80-5.40) m/uL Hgb 9.1 L (11.4-16.0) gm/dL Hct 29.3 L (34.0-46.0) % RDW 17.7 H (11.5-15.5) % Neutrophils # (1.3-7.7) k/uL Retic Count (0.5-2.0) % Sodium 136 L (137-145) mmol/L Carbon Dioxide 21 L (22-30) mmol/L BUN 62 H (7-17) mg/dL Creatinine 1.86 H (0.52-1.04) mg/dL Glucose 57 L (74-99) mg/dL POC Glucose (mg/dL) 71 L (75-99) mg/dL Calcium 7.9 L (8.4-10.2) mg/dL Total Protein 5.2 L (6.3-8.2) g/dL Albumin 2.1 L (3.5-5.0) g/dL U Random Total Protein (<12) mg/dL 07/30/18 07/30/18 07/30/18 Range/Units 06:29 07:00 11:10 WBC (3.8-10.6) k/uL RBC (3.80-5.40) m/uL Hgb (11.4-16.0) gm/dL Hct (34.0-46.0) % RDW (11.5-15.5) % Neutrophils # (1.3-7.7) k/uL Retic Count 3.1 H (0.5-2.0) % Sodium (137-145) mmol/L Carbon Dioxide (22-30) mmol/L BUN (7-17) mg/dL Creatinine (0.52-1.04) mg/dL Glucose (74-99) mg/dL POC Glucose (mg/dL) 68 L 111 H (75-99) mg/dL Calcium (8.4-10.2) mg/dL Total Protein (6.3-8.2) g/dL Albumin (3.5-5.0) g/dL U Random Total Protein (<12) mg/dL Assessment and Plan Plan: 1. Right hip fracture Status post intramedullary nail Continue with PT unknown T as recommended by aorta surgery Incentive spirometer Increase activity as tolerated as per recommendations from or to DVT prophylaxis 2. Type 2 diabetes mellitus with long-term use of insulin Her A1c is 7.9 which given her age and comorbidities is a reasonable level Blood sugar has been in acceptable range and she continues with a sliding scale As the diet changes and oral intake increases we will continue to monitor and adjust 3. CKD stage III Creatinine has been stable Electrolytes normal Urine output adequate Proteinuria at 1.1 g per day not in nephrotic range but this should be further monitored and followed outpatient Urine and serum protein electrophoresis pending Given anemia renal insufficiency and fragility fracture I will obtain protein electrophoresis 4. Hypoalbuminemia Protein electrophoresis pending Encourage protein supplements 5. Hidradenitis suppurativa Local care as outlined by infectious disease 6. Anemia, normocytic although with increased RDW Likely related to renal insufficiency Hemoglobin Been stable this morning iron panel pending Patient will require physical and occupational therapy evaluation. Expect discharge on Wednesday 2 days and likely will require NILA
[2018-07-30 16:43] LABS: Glucose,Whole Blood 239 mg/dL (75-99)
[2018-07-30 17:27] LABS: Iron Saturation 11.56 (12.00-45.00)
[2018-07-30] MEDS: INSULIN DETEMIR 100 UNIT/ML 10 ML VIAL SQ SCH (20:21)
[2018-07-30] MEDS: ATORVASTATIN 20 MG TAB PO SCH (20:21)
[2018-07-30] MEDS: SENNOSIDES-DOCUSATE SODIUM 1 EACH TAB PO SCH (20:22)
[2018-07-30 20:31] LABS: Glucose,Whole Blood 191 mg/dL (75-99)
[2018-07-31] MEDS: ALPRAZolam 1 MG TAB PO PRN (00:14)
[2018-07-31] MEDS: LACTATED RINGERS 1,000 ML IV SCH ×2 (05:09→11:41)
[2018-07-31] MEDS: LEVOTHYROXINE 50 MCG TAB PO SCH (05:10)
[2018-07-31 06:52] LABS: Glucose,Whole Blood 62 mg/dL (75-99)
[2018-07-31 06:53] LABS: Anisocytosis Slight; Basophils % (A) 0 %; Eosinophils # (A) 0.3 k/uL (0-0.7); Eosinophils % (A) 2 %; HGB 7.7 gm/dL (11.4-16.0); Lymphocytes # (A) 2.5 k/uL (1.0-4.8); Lymphocytes % (A) 21 %; MCH 26.5 pg (25.0-35.0); MCV 82.6 fL (80.0-100.0); Monocytes # (A) 0.8 k/uL (0-1.0); Monocytes % (A) 6 %; Neutrophils # (A) 8.4 k/uL (1.3-7.7); Neutrophils % (A) 69 %; Platelet Count 241 k/uL (150-450); RBC 2.91 m/uL (3.80-5.40); RDW 18.3 % (11.5-15.5); WBC 12.1 k/uL (3.8-10.6)
[2018-07-31 07:17] LABS: Calcium 7.5 mg/dL (8.4-10.2); Potassium 4.5 mmol/L (3.5-5.1); Total Bilirubin 0.3 mg/dL (0.2-1.3)
[2018-07-31 07:36] LABS: Glucose,Whole Blood 99 mg/dL (75-99)
[2018-07-31] MEDS: INSULIN ASPART 100 UNIT/ML 1 ML 10 ML VIAL SQ SCH ×4 (08:00→20:15)
[2018-07-31] MEDS: HEPARIN SODIUM,PORCINE 5,000 UNIT/ML 1 ML VIAL SQ SCH ×2 (08:06→20:15)
[2018-07-31] MEDS: PANTOPRAZOLE 40 MG TABLET PO SCH (08:06)
[2018-07-31] MEDS: PARoxetine 10 MG TAB PO SCH (08:07)
[2018-07-31] MEDS: METOPROLOL SUCCINATE (ER) 25 MG TAB.ER.24H PO SCH (08:08)
[2018-07-31 11:16] LABS: Glucose,Whole Blood 125 mg/dL (75-99)
[2018-07-31] MEDS ORDERED: traMADol 50 MG TAB PO PRN ×2 (11:34→11:38)
[2018-07-31] MEDS: LISINOPRIL 2.5 MG TAB PO SCH (11:43)
--- NOTE | 2018-07-31 11:44 | P.PN ---
Progress Note - Text Progress Note Date: 07/31/18 Patient is a pleasant 83-year-old female who is seen and examined at bedside for follow-up evaluation after undergoing a right lung IT nail for comminuted right subtrochanteric fracture. Surgery was performed ride a, 07/29/[address] Sawyer. Patient currently has a boot cuff intact over the bilateral lower extremities along with a pneumatic cuff over the left lower extremity. She is planning to work with physical therapy today but nursing states patient has been unwilling to work with therapy to get out of bed for transfer to a bedside chair due to increased pain with movement of her right hip. Patient states at the bedside she wants to get out of bed today. She has had some increased confusion as compared to yesterday. She is able to state why she is at the hospital, floor she is on, and while she is at the hospital, but also make references to ambulating to the restroom in her own home. Nursing states the patient stated she wanted to get out of bed to turn on her fireplace. Mae catheter continues to be intact. She is eating and voiding without difficulty. She does not have any abdominal pain. She does feel her pain has been controlled but is exacerbated with movements of the right hip. She has not been out of bed following surgical intervention. He is currently on heparin for anticoagulation postoperatively. Patient does have a history of hidradenitis over the past 50 years[address] She has seen [address] Velez in the past and she has been seen by Dr. Velez during this admittance. Physical Exam Intramedullary [place] for Intertrochanteric Fracture: Status post surgical day number 2 Patient is examined lying in bed Patient is awake and alert, and oriented 3 but does have some confusion. She is able to answer some questions appropriately as to where she is at and why she is here but also makes reference to being at her own home and ambulating to her own bedroom even though she is aware she is at the hospital Vital signs stable Good chest excursion with deep inspiration and expiration Abdomen soft nontender No signs or symptoms of DVT; no calf pain Boot cuff intact bilateral lower extremities Pneumatic cuff intact left lower extremity Dressing of the right hip and right distal femur is clean, dry, and intact; no erythema, purulence, or signs of infection Pain with palpation over the surgical sites over the right hip and right distal femur Dorsiflexion, plantarflexion, and extensor hallucis longus positive sustained bilaterally Neurovascularly intact bilateral lower extremities Capillary refill less than 2 seconds bilateral lower extremities Mae catheter intact Assessment: Status post long right intramedullary nail fixation for right subtrochanteric hip fracture Status post fall Straight multiple falls History of hidradenitis Confusion Plan: 1. Patient to remain toe-touch weightbearing on the right lower extremity; patient may work with physical therapy to increase mobility and ambulation; patient is encouraged multiple times at the bedside to work with therapy 2. Keep dressing over the right hip and distal femur clean, dry, and intact 3. We will order a urinalysis for further evaluation as the patient has had increased confusion 4. Discontinue Mae catheter when patient is able to increase mobility and ambulation 5. Continue pain control; due to some confusion and pain being controlled at rest, we will discontinue [place] 5 mg/325 mg and will add Ultram 50 mg which she may take as prescribed as needed for relief of her symptoms 6. Continue with anticoagulation therapy with heparin as prescribed by medicine 7. Medicine to continue following the patient for their other medical diagnosis including increased confusion 8. We'll continue to follow the patient closely; depending on the patient's progress, we may plan for discharge as early as 08/01/2018 to a rehabilitation facility 9. Patient can follow-up with Dr. Sawyer at [facility] in 2-3 weeks following discharge
[2018-07-31 12:03] LABS: Appearance,Urine Cloudy (Clear); Bacteria,Urine Occasional /hpf; Bilirubin,Urine Negative (Negative); Blood,Urine Negative (Negative); Color,Urine Yellow; Glucose,Urine (UA) Negative (Negative); Hyaline Casts,Urine 3 /lpf (0-2); Ketones,Urine Negative (Negative); Leukocyte Esterase,Urine Large (Negative); Mucus,Urine Rare /hpf; Nitrite,Urine Negative (Negative); PH, Urine 5.5 (5.0-8.0); Protein,Urine 1+ (Negative); RBC,Urine 2 /hpf (0-5); Specific Gravity,Urine 1.012 (1.001-1.035); Squamous Epithelial Cell,Urine <1 /hpf (0-4); Urobilinogen,Urine <2.0 mg/dL (<2.0); WBC,Urine 101 /hpf (0-5)
[2018-07-31] MEDS: MULTIVITAMINS, THERA 1 EACH TAB PO SCH (13:28)
--- NOTE | 2018-07-31 13:40 | P.PN ---
Subjective Patient this morning doing very well. She participated in physical therapy 8 her breakfast. She does not have any complaints of any chest pain shortness of breath dizziness abdominal pain nausea or vomiting. Her hip pain is slightly better. She did have some episodes of confusion overnight symptoms like in she told me that she felt that she was dreaming that she's walking around and then now she is aware that that was not sure. Also was noted that this morning his she had some blood sugars some BMP in 50s. REVIEW OF SYSTEMS: CONSTITUTIONAL: No fever or chills HEENT: No changes in vision or voice CARDIOVASCULAR: no chest pain or abnormal heart beats, or any swelling in ankles or feet. RESPIRATORY: No wheezing or coughing. GASTROINTESTINAL: No abdominal pain, no nausea no vomiting no constipation or diarrhea GENITOURINARY: no any urinary urgency, frequency or burning, and there has been no blood in her urine. no flank pain. MUSCULOSKELETAL: She notes full range of motion of all her joints without pain or swelling. NEUROLOGICAL: , no headache. no vision changes, or fainting. No numbness or tingling. Objective - Vital Signs Vital signs: Vital Signs Temp 98.1 F 07/31/18 07:51 Pulse 78 07/31/18 11:45 Resp 20 07/31/18 07:51 BP 123/69 07/31/18 11:45 Pulse Ox 99 07/31/18 07:51 Intake & Output 07/30/18 07/31/18 07/31/18 18:59 06:59 18:59 Intake Total 1458 1300 200 Output Total 775 600 Balance 683 700 200 Intake: Intake, IV Titration 800 Amount Lactated Ringers 1,000 ml 800 @ 100 mls/hr IV .Q10H [facility] Rx#:[id number] Oral 1458 200 Other 500 Output: Urine 775 600 Uretheral (Mae) 775 Other: Voiding Method Indwelling Catheter Indwelling Catheter Indwelling Catheter - Exam Vital Signs: I have reviewed the vital signs. GENERAL: Well-nourished, Well-developed , no apparent distress, cooperative Eyes: PERRL, extraoculry movements intact, clear conjunctiva Head: : Atraumatic external nose and ears, oropharyngeal mucosa is moist without lesions or exudates Neck: Symmetric, trachea midline, No thyromegaly, no masses or neck vain pulsation, no neck rigidity CVS: +S1/S2, No murmurs or gallops. Peripheral pulses 2+ and equal in all extremities. RESP: Unlabored respiratory effort. Clear to auscultation bilaterally. Abdomen: Bowel sounds present in all 4 quadrants, Soft to palpation, Nontender/ Nondistended, No hepatosplenomegaly, no hernias or masses, no CVA tnderness Musculoskeletal: Extremities w/o deformity, No cyanosis or clubbing, no joint swelling Skin: Warm, Dry. No rashes or lesions Neuro: procedure manager II-XII grossly intact, motor strenght 5/5 i upper and lower extremities, no clonus, patellar DTRs 2+ and sympetrical Psych: Awake, Alert, & Oriented (AAO) x3 Appropriate mood and affect - Labs CBC & Chem 7: 07/31/18 06:28 07/31/18 06:28 Labs: Abnormal Lab Results - Last 24 Hours (Table) 07/30/18 07/30/18 07/30/18 Range/Units 06:29 16:40 20:20 WBC (3.8-10.6) k/uL RBC (3.80-5.40) m/uL Hgb (11.4-16.0) gm/dL Hct (34.0-46.0) % RDW (11.5-15.5) % Neutrophils # (1.3-7.7) k/uL Sodium (137-145) mmol/L BUN (7-17) mg/dL Creatinine (0.52-1.04) mg/dL Glucose (74-99) mg/dL POC Glucose (mg/dL) 239 H 191 H (75-99) mg/dL Calcium (8.4-10.2) mg/dL Iron 17 L (50-170) ug/dL TIBC 147 L (228-460) ug/dL Iron Saturation 11.56 L (12.00-45.00) Total Protein (6.3-8.2) g/dL Albumin (3.5-5.0) g/dL Urine Appearance (Clear) Urine Protein (Negative) Ur Leukocyte Esterase (Negative) Urine WBC (0-5) /hpf Urine WBC Clumps (None) /hpf Urine Bacteria (None) /hpf Hyaline Casts (0-2) /lpf Urine Mucus (None) /hpf 09/07/31/18 07/31/18 Range/Units 06:28 06:28 06:44 WBC 12.1 H (3.8-10.6) k/uL RBC 2.91 L (3.80-5.40) m/uL Hgb 7.7 L (11.4-16.0) gm/dL Hct 24.0 L (34.0-46.0) % RDW 18.3 H (11.5-15.5) % Neutrophils # 8.4 H (1.3-7.7) k/uL Sodium 134 L (137-145) mmol/L BUN 61 H (7-17) mg/dL Creatinine 2.29 H (0.52-1.04) mg/dL Glucose 50 L (74-99) mg/dL POC Glucose (mg/dL) 62 L (75-99) mg/dL Calcium 7.5 L (8.4-10.2) mg/dL Iron (50-170) ug/dL TIBC (228-460) ug/dL Iron Saturation (12.00-45.00) Total Protein 5.0 L (6.3-8.2) g/dL Albumin 2.0 L (3.5-5.0) g/dL Urine Appearance (Clear) Urine Protein (Negative) Ur Leukocyte Esterase (Negative) Urine WBC (0-5) /hpf Urine WBC Clumps (None) /hpf Urine Bacteria (None) /hpf Hyaline Casts (0-2) /lpf Urine Mucus (None) /hpf 07/31/18 07/31/18 Range/Units 11:14 11:40 WBC (3.8-10.6) k/uL RBC (3.80-5.40) m/uL Hgb (11.4-16.0) gm/dL Hct (34.0-46.0) % RDW (11.5-15.5) % Neutrophils # (1.3-7.7) k/uL Sodium (137-145) mmol/L BUN (7-17) mg/dL Creatinine (0.52-1.04) mg/dL Glucose (74-99) mg/dL POC Glucose (mg/dL) 125 H (75-99) mg/dL Calcium (8.4-10.2) mg/dL Iron (50-170) ug/dL TIBC (228-460) ug/dL Iron Saturation (12.00-45.00) Total Protein (6.3-8.2) g/dL Albumin (3.5-5.0) g/dL Urine Appearance Cloudy H (Clear) Urine Protein 1+ H (Negative) Ur Leukocyte Esterase Large H (Negative) Urine WBC 101 H (0-5) /hpf Urine WBC Clumps Few H (None) /hpf Urine Bacteria Occasional H (None) /hpf Hyaline Casts 3 H (0-2) /lpf Urine Mucus Rare H (None) /hpf Assessment and Plan Plan: 1. Right hip fracture Status post intramedullary nail Continue with PT unknown T as recommended by aorta surgery Incentive spirometer Increase activity as tolerated as per recommendations from or to DVT prophylaxis with subcu heparin 2. 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 CKD stage III Creatinine elevated this morning This could be easily possibly due to ammoniacal instability and bleeding to to surgery to rule out other reasons We'll ask nephrology to valid the patient Monitor closely creatinine and electrolytes and urine output So far, Electrolytes normal Urine output adequate Proteinuria at 1.1 g per day not in nephrotic range but this should be further monitored and followed outpatient Urine and serum protein electrophoresis pending, this is obtain in view of her proteinuria for elective fracture and anemia and renal insufficiency 4. Hypoalbuminemia Protein electrophoresis pending Encourage protein supplements 5. Hidradenitis suppurativa Local care as outlined by infectious disease 6. Anemia, normocytic although with increased RDW Likely related to renal insufficiency Hemoglobin down to 7.7 this morning which could be due to surgery and operative blood loss iron panel pending Repeat hemoglobin in the morning and transfuse as needed next line currently patient is Hemoccult stable asymptomatic and no martha indication for transfusion at this point 7. Mild delirium Discontinue urinary catheter Irritation Discontinue most of the pain medications and benzos Adjust insulin to avoid hypoglycemia so overnight Patient will require physical and occupational therapy evaluation. Expect discharge on Wednesday to subacute rehab
[2018-07-31 17:29] LABS: Glucose,Whole Blood 305 mg/dL (75-99)
[2018-07-31] MEDS ORDERED: INSULIN ASPART 100 UNIT/ML 1 ML 10 ML VIAL SQ ONE (17:57)
[2018-07-31] MEDS: INSULIN DETEMIR 100 UNIT/ML 10 ML VIAL SQ SCH (20:14)
[2018-07-31 20:15] LABS: Glucose,Whole Blood 238 mg/dL (75-99)
[2018-07-31] MEDS: ATORVASTATIN 20 MG TAB PO SCH (20:15)
[2018-07-31] MEDS: SENNOSIDES-DOCUSATE SODIUM 1 EACH TAB PO SCH (20:15)
[2018-08-01] MEDS: LEVOTHYROXINE 50 MCG TAB PO SCH (05:30)
[2018-08-01 06:09] LABS: Glucose,Whole Blood 156 mg/dL (75-99)
[2018-08-01 06:44] LABS: Glucose,Whole Blood 134 mg/dL (75-99)
[2018-08-01] MEDS: INSULIN ASPART 100 UNIT/ML 1 ML 10 ML VIAL SQ SCH ×4 (08:29→20:55)
[2018-08-01] MEDS: PANTOPRAZOLE 40 MG TABLET PO SCH (08:29)
[2018-08-01] MEDS: METOPROLOL SUCCINATE (ER) 25 MG TAB.ER.24H PO SCH (08:30)
[2018-08-01] MEDS: HEPARIN SODIUM,PORCINE 5,000 UNIT/ML 1 ML VIAL SQ SCH ×2 (08:30→20:54)
--- NOTE | 2018-08-01 08:32 | P.PN ---
Subjective Progress Note Date: 08/01/18 Principal diagnosis: Subtrochanteric fracture right hip. Multiple medical comorbidities. This is an 83-year-old female who we're following regarding her right hip fracture. She is status post close reduction with insertion of long intertrochanteric nail. She continues to complain of right hip pain. She did have some confusion this weekend which is resolving. Vital signs are stable. Objective - Vital Signs Vital signs: Vital Signs Temp 99.6 F 08/01/18 08:07 Pulse 81 08/01/18 08:07 Resp 12 08/01/18 08:07 BP 134/78 08/01/18 08:07 Pulse Ox 94 L 08/01/18 08:07 Intake & Output 07/31/18 08/01/18 08/01/18 18:59 06:59 18:59 Intake Total 320 600 Output Total 450 200 Balance -130 400 Intake: Oral 320 Other 600 Output: Urine 450 200 Uretheral (Mae) 100 Other: Voiding Method Indwelling Catheter Indwelling Catheter # Voids 3 - Exam This is a pleasant 83-year-old female in no acute distress. She is alert and oriented 3 at this time. Exam of the right hip reveals that her dressing is clean, dry and intact. She has full foot and ankle motion without difficulty or pain. Neurovascular status to the right lower extremity is intact. - Labs CBC & Chem 7: 07/31/18 06:28 07/31/18 06:28 Labs: Abnormal Lab Results - Last 24 Hours (Table) 07/31/18 07/31/18 07/31/18 Range/Units 11:14 11:40 17:26 POC Glucose (mg/dL) 125 H 305 H (75-99) mg/dL Urine Appearance Cloudy H (Clear) Urine Protein 1+ H (Negative) Ur Leukocyte Esterase Large H (Negative) Urine WBC 101 H (0-5) /hpf Urine WBC Clumps Few H (None) /hpf Urine Bacteria Occasional H (None) /hpf Hyaline Casts 3 H (0-2) /lpf Urine Mucus Rare H (None) /hpf 07/31/18 08/01/18 08/01/18 Range/Units 20:09 06:07 06:42 POC Glucose (mg/dL) 238 H 156 H 134 H (75-99) mg/dL Urine Appearance (Clear) Urine Protein (Negative) Ur Leukocyte Esterase (Negative) Urine WBC (0-5) /hpf Urine WBC Clumps (None) /hpf Urine Bacteria (None) /hpf Hyaline Casts (0-2) /lpf Urine Mucus (None) /hpf Assessment and Plan (1) Fracture, subtrochanteric, right femur, closed Current Visit: Yes Status: Acute Code(s): S72.21XA - DISPLACED SUBTROCHANTERIC FRACTURE OF RIGHT FEMUR, INIT SNOMED Code(s): 484807640 (2) Obesity (BMI 30.0-34.9) Current Visit: Yes Status: Acute Code(s): E66.9 - OBESITY, UNSPECIFIED SNOMED Code(s): 278671747 (3) Type 1 diabetes mellitus Current Visit: Yes Status: Acute Code(s): E10.9 - TYPE 1 DIABETES MELLITUS WITHOUT COMPLICATIONS SNOMED Code(s): 37490027 (4) Skin infection Current Visit: Yes Status: Acute Code(s): L08.9 - LOCAL INFECTION OF THE SKIN AND SUBCUTANEOUS TISSUE, UNSP SNOMED Code(s): 760321608 Plan: The clinical findings are discussed with the patient. She may be discharged to inpatient rehab when cleared medically. She is toe-touch weightbearing only to the right lower extremity with walker.
[2018-08-01 08:40] LABS: Anisocytosis Slight; Basophils % (A) 0 %; Eosinophils # (A) 0.2 k/uL (0-0.7); Eosinophils % (A) 2 %; HCT 26.6 % (34.0-46.0); HGB 8.4 gm/dL (11.4-16.0); Lymphocytes # (A) 1.3 k/uL (1.0-4.8); Lymphocytes % (A) 14 %; MCH 26.8 pg (25.0-35.0); MCHC 31.7 g/dL (31.0-37.0); MCV 84.6 fL (80.0-100.0); Mean Platelet Volume 8.8; Monocytes # (A) 0.5 k/uL (0-1.0); Monocytes % (A) 5 %; Neutrophils # (A) 7.1 k/uL (1.3-7.7); Neutrophils % (A) 77 %; Platelet Count 289 k/uL (150-450); RBC 3.14 m/uL (3.80-5.40); RDW 18.4 % (11.5-15.5); WBC 9.2 k/uL (3.8-10.6)
[2018-08-01 08:57] LABS: Albumin 2.3 g/dL (3.5-5.0); Calcium 8.3 mg/dL (8.4-10.2); Potassium 5.1 mmol/L (3.5-5.1); Total Bilirubin 0.6 mg/dL (0.2-1.3); Total Protein 5.6 g/dL (6.3-8.2)
--- NOTE | 2018-08-01 11:07 | P.NPCON ---
History of Present Illness - Reason for Consult acute renal failure, chronic renal failure - History of Present Illness Reason for consultation: Acute kidney injury on chronic kidney disease History of present illness: Patient is a 83-year-old female seen in renal consultation for acute kidney injury and chronic kidney disease. Patient has chronic kidney disease stage III with baseline creatinine in the range of 1.5-2. Etiology is diabetic kidney disease. Patient presented to the hospital after sustaining a fall. She was noted to have right hip pain and was noted to have a subtrochanteric fracture. She underwent closed reduction on July 29. Currently resting in bed. Oral intake is good. Admits to good urine output. No hematuria or dysuria. Creatinine peaked at 2.29 this admission as of yesterday and is down to 2.03 today. Hemodynamically stable. LORRIE inhibitor was discontinued yesterday. No vomiting or diarrhea. No active complaints at this time. Vital signs are stable. General: The patient appeared well nourished and normally developed. HEENT: Head exam is unremarkable. Neck is without jugular venous distension. LUNGS: Lungs are clear to auscultation and percussion. Breath sounds decreased. HEART: Rate and Rhythm are regular. First and second heart sounds normal. No murmurs, rubs or gallops. ABDOMEN: Abdominal exam reveals normal bowel sounds. Non-tender and non- distended. No evidence of peritonitis. EXTREMITITES: No clubbing, cyanosis, or edema. Past Medical History Past Medical History: COPD, Diabetes Mellitus, Hypertension, Osteoarthritis (OA) Additional Past Medical History / Comment(s): DIVERTICULITIS(SX), START OF CATARACATS, HOME 02 1 LITER N/C NEEDED, "BOILD ON ABD,DRAINING" History of Any Multi-Drug Resistant Organisms: None Reported Date of last positivie culture/infection: None MDRO Source:: None Past Surgical History: Appendectomy, Hysterectomy Additional Past Surgical History / Comment(s): had colostomy for few months then reversed, "stomach surgery on boils", "for cysts under my arms","water taken off lt knee" Past Anesthesia/Blood Transfusion Reactions: No Reported Reaction Additional Past Anesthesia/Blood Transfusion Reaction / Comment(s): clausterphobia Additional Psychological History / Comment(s): and lives independently. Retired. No travel history. No experience. No animals in the home. Tobacco smoker stopping 15 years ago. No history of recreational drug use or significant alcohol use Smoking Status: Former smoker - Past Family History Mother Family Medical History: Cancer Additional Family Medical History / Comment(s): lung cancer Father Family Medical History: COPD Additional Family Medical History / Comment(s): emphysema Medications and Allergies Home Medications Medication Instructions Recorded Confirmed Type ALPRAZolam [Xanax] 1 mg PO TID PRN 07/27/18 07/29/18 History Acetaminophen with Codeine 1 tab PO BID PRN 07/27/18 07/29/18 History [Acetaminophen-Cod #2 Tablet] Apixaban [Eliquis] 2.5 mg PO BID 07/27/18 07/29/18 History Atorvastatin Calcium [Lipitor] 20 mg PO HS 07/27/18 07/29/18 History Doxycycline Hyclate [Vibramycin] 100 mg PO BID 07/27/18 07/29/18 History Furosemide [Lasix] 40 mg PO BID 07/27/18 07/29/18 History Glimepiride [Amaryl] 2 mg PO DAILY 07/27/18 07/29/18 History Insulin Glargine [Lantus] 30 unit SQ HS 07/27/18 07/29/18 History Insulin Lispro [humaLOG Kwikpen] 4 unit SQ AC-TID 07/27/18 07/29/18 History Insulin Lispro [humaLOG Kwikpen] See Protocol SQ AC-TID 07/27/18 07/29/18 History Levothyroxine Sodium [Synthroid] 50 mcg PO DAILY 07/27/18 07/29/18 History Lisinopril [Zestril] 2.5 mg PO DAILY 07/27/18 07/29/18 History Metoprolol Succinate (ER) [Toprol 25 mg PO DAILY 07/27/18 07/29/18 History Xl] NIFEdipine [NIFEdipine ER] 60 mg PO DAILY 07/27/18 07/29/18 History Omeprazole 20 mg PO DAILY 07/27/18 07/29/18 History PARoxetine [Paxil] 10 mg PO DAILY 07/27/18 07/29/18 History Potassium Chloride [Klor-Con 10] 10 meq PO DAILY 07/27/18 07/29/18 History Allergies Allergy/AdvReac Type Severity Reaction Status Date / Time No Known Allergies Allergy Verified 07/29/18 11:21 Physical Exam Vitals: Vital Signs Temp Pulse Resp BP Pulse Ox 08/01/18 08:07 99.6 F 81 12 134/78 94 L 08/01/18 01:23 98.2 F 83 18 136/65 93 L 07/31/18 20:00 98.2 F 67 16 127/62 92 L 07/31/18 14:13 98.2 F 74 16 136/60 96 07/31/18 11:45 78 123/69 Intake and Output 07/31/18 08/01/18 08/01/18 22:59 06:59 14:59 Intake Total 420 300 180 Output Total 300 Balance 120 300 180 Intake: Oral 120 180 Other 300 300 Output: Urine 300 Uretheral (Mae) 100 Other: Voiding Method Indwelling Catheter # Voids 1 3 Results - Lab Results Most recent lab results Calcium 8.3 mg/dL (8.4-10.2) L 08/01/18 07:50 08/01/18 07:50 08/01/18 07:50 Assessment and Plan Plan: Assessment: 1. Nonoliguric acute kidney injury mostly prerenal improved with discontinuation of LORRIE inhibitor. Creatinine peaked at 2.9 yesterday and is 2.03 today. 2. Chronic kidney disease stage III with baseline creatinine in the range of 1.5-2 secondary to diabetic kidney disease. 3. Fall with right subtrochanteric fracture status post closed reduction on July 29. 4. Diabetes mellitus. 5. Anemia of chronic kidney disease. Rule out iron deficiency. 6. Hypertension with chronic kidney disease. Controlled. Plan: Encourage oral intake. Avoid nephrotoxic agents. Continue to hold lisinopril for now. Check iron studies. Add Aranesp. Repeat electrolytes in the morning. Thank you for the consultation. I will continue to follow the patient with you during her hospital stay.
[2018-08-01] MEDS ORDERED: DARBEPOETIN ALFA 40 MCG/0.4 ML SYRINGE SQ SCH (12:00)
[2018-08-01 12:38] LABS: Glucose,Whole Blood 173 mg/dL (75-99)
[2018-08-01] MEDS: MULTIVITAMINS, THERA 1 EACH TAB PO SCH (13:05)
--- NOTE | 2018-08-01 15:44 | P.PN ---
Subjective Progress Note Date: 08/01/18 The patient was seen and examined at the bedside. She was in good spirits and denied any active complaints. She endorsed episodes of confusion and not feeling like herself which have decreased since yesterday. She has been attempting to participate more with the PT. She otherwise denied any fevers, chills, chest pain, shortness of breath, nausea, vomiting, or dizziness. Objective - Vital Signs Vital signs: Vital Signs Temp 99.6 F 08/01/18 08:07 Pulse 81 08/01/18 08:07 Resp 12 08/01/18 08:07 BP 134/78 08/01/18 08:07 Pulse Ox 94 L 08/01/18 08:07 Intake & Output 07/31/18 08/01/18 08/01/18 18:59 06:59 18:59 Intake Total 320 600 180 Output Total 450 200 Balance -130 400 180 Intake: Oral 320 180 Other 600 Output: Urine 450 200 Uretheral (Rios) 100 Other: Voiding Method Indwelling Catheter Indwelling Catheter # Voids 3 - Exam General: Non-toxic, in no acute distress HEENT: NC/AT, anicteric sclerae, moist conjunctiva, no lid-lag, PERRLA, oropharynx clear, no erythema, exudates Cardiovascular: S1/S2 wnl, no murmurs, rubs, or gallops Lungs: Clear to auscultation, normal respiratory effort, no accessory muscle use Abdominal: Soft, nontender, non-distended, no guarding, rebound, or rigidity, normoactive bowel sounds Skin: Warm, dry, area of thickened skin w/ some induration over lower abdomen Extremities: No edema or contractures Psychiatric: Alert and oriented to person, place and time, appropriate affect, Intact judgment Neuro: CN II-XII grossly intact, no focal motor deficits - Labs CBC & Chem 7: 08/01/18 07:50 08/01/18 07:50 Labs: Abnormal Lab Results - Last 24 Hours (Table) 07/31/18 07/31/18 07/31/18 Range/Units 11:40 17:26 20:09 RBC (3.80-5.40) m/uL Hgb (11.4-16.0) gm/dL Hct (34.0-46.0) % RDW (11.5-15.5) % BUN (7-17) mg/dL Creatinine (0.52-1.04) mg/dL Glucose (74-99) mg/dL POC Glucose (mg/dL) 305 H 238 H (75-99) mg/dL Calcium (8.4-10.2) mg/dL Total Protein (6.3-8.2) g/dL Albumin (3.5-5.0) g/dL Urine Appearance Cloudy H (Clear) Urine Protein 1+ H (Negative) Ur Leukocyte Esterase Large H (Negative) Urine WBC 101 H (0-5) /hpf Urine WBC Clumps Few H (None) /hpf Urine Bacteria Occasional H (None) /hpf Hyaline Casts 3 H (0-2) /lpf Urine Mucus Rare H (None) /hpf 08/01/18 08/01/18 08/01/18 Range/Units 06:07 06:42 07:50 RBC 3.14 L (3.80-5.40) m/uL Hgb 8.4 L (11.4-16.0) gm/dL Hct 26.6 L (34.0-46.0) % RDW 18.4 H (11.5-15.5) % BUN (7-17) mg/dL Creatinine (0.52-1.04) mg/dL Glucose (74-99) mg/dL POC Glucose (mg/dL) 156 H 134 H (75-99) mg/dL Calcium (8.4-10.2) mg/dL Total Protein (6.3-8.2) g/dL Albumin (3.5-5.0) g/dL Urine Appearance (Clear) Urine Protein (Negative) Ur Leukocyte Esterase (Negative) Urine WBC (0-5) /hpf Urine WBC Clumps (None) /hpf Urine Bacteria (None) /hpf Hyaline Casts (0-2) /lpf Urine Mucus (None) /hpf 08/01/18 Range/Units 07:50 RBC (3.80-5.40) m/uL Hgb (11.4-16.0) gm/dL Hct (34.0-46.0) % RDW (11.5-15.5) % BUN 60 H (7-17) mg/dL Creatinine 2.03 H (0.52-1.04) mg/dL Glucose 122 H (74-99) mg/dL POC Glucose (mg/dL) (75-99) mg/dL Calcium 8.3 L (8.4-10.2) mg/dL Total Protein 5.6 L (6.3-8.2) g/dL Albumin 2.3 L (3.5-5.0) g/dL Urine Appearance (Clear) Urine Protein (Negative) Ur Leukocyte Esterase (Negative) Urine WBC (0-5) /hpf Urine WBC Clumps (None) /hpf Urine Bacteria (None) /hpf Hyaline Casts (0-2) /lpf Urine Mucus (None) /hpf Assessment and Plan Plan: R hip fracture s/p intrameduallary nail - Continue w/ PT/OT - NILA placement upon discharge - Incentive spirometer Delirium -Multi-factorial, possibly secondary to hypoglycemia vs indwelling rios ( recently discontinued) - Improved, will monitor Type 2 DM - No further episodes of hypoglycemia since yesterday - Will c/w Levemir 10 U qhs CKD 3 - Cr stable - K trended up - Nephrology recs appreciated DVT//GI prophylaxis - Heparin - No indication for GI prophylaxis
[2018-08-01 17:02] LABS: Iron Saturation 13.41 (12.00-45.00)
[2018-08-01 18:13] LABS: Glucose,Whole Blood 301 mg/dL (75-99)
[2018-08-01 20:17] LABS: Glucose,Whole Blood 173 mg/dL (75-99)
[2018-08-01] MEDS: ATORVASTATIN 20 MG TAB PO SCH (20:54)
[2018-08-01] MEDS: INSULIN DETEMIR 100 UNIT/ML 10 ML VIAL SQ SCH (20:55)
[2018-08-01] MEDS: SENNOSIDES-DOCUSATE SODIUM 1 EACH TAB PO SCH (20:56)
[2018-08-02 06:50] LABS: Glucose,Whole Blood 57 mg/dL (75-99)
[2018-08-02 07:14] LABS: Glucose,Whole Blood 74 mg/dL (75-99)
[2018-08-02 07:35] VITALS: TEMP 98.2
[2018-08-02 07:46] LABS: Calcium 8.4 mg/dL (8.4-10.2); Potassium 4.2 mmol/L (3.5-5.1)
[2018-08-02] MEDS: INSULIN ASPART 100 UNIT/ML 1 ML 10 ML VIAL SQ SCH ×2 (08:27→12:37)
[2018-08-02] MEDS: METOPROLOL SUCCINATE (ER) 25 MG TAB.ER.24H PO SCH (08:31)
[2018-08-02] MEDS: PANTOPRAZOLE 40 MG TABLET PO SCH (08:31)
[2018-08-02] MEDS: LEVOTHYROXINE 50 MCG TAB PO SCH (08:31)
[2018-08-02] MEDS: HEPARIN SODIUM,PORCINE 5,000 UNIT/ML 1 ML VIAL SQ SCH (08:32)
[2018-08-02] MEDS: ACETAMINOPHEN TAB 325 MG TAB PO PRN (08:38)
[2018-08-02 10:59] VITALS: BMI 30.4
[2018-08-02 11:11] LABS: Glucose,Whole Blood 116 mg/dL (75-99)
--- NOTE | 2018-08-02 11:21 | P.PN ---
Subjective Patient is seen in follow-up for acute kidney injury on chronic kidney disease. Patient has chronic kidney disease stage III with baseline creatinine in the range of 1.5-2 secondary to diabetic kidney disease. Patient sustained a fall and underwent closed reduction of the subtrochanteric fracture. She is resting in bed. Admits to good urine output. Renal function improving with creatinine down to 1.76 today. Lisinopril was discontinued this admission. Vital signs are stable. General: The patient appeared well nourished and normally developed. HEENT: Head exam is unremarkable. Neck is without jugular venous distension. LUNGS: Lungs are clear to auscultation and percussion. Breath sounds decreased. HEART: Rate and Rhythm are regular. First and second heart sounds normal. No murmurs, rubs or gallops. ABDOMEN: Abdominal exam reveals normal bowel sounds. Non-tender and non- distended. No evidence of peritonitis. EXTREMITITES: No clubbing, cyanosis, or edema. Objective - Vital Signs Vital signs: Vital Signs Temp 98.2 F 08/02/18 07:00 Pulse 94 08/02/18 07:14 Resp 15 08/02/18 07:14 BP 147/69 08/02/18 07:00 Pulse Ox 95 08/02/18 07:00 Intake & Output 08/01/18 08/02/18 08/02/18 18:59 06:59 18:59 Intake Total 360 850 118 Output Total 600 200 Balance -240 850 -82 Weight 80.286 kg Intake: Oral 360 850 118 Output: Urine 600 200 Other: Voiding Method Bedpan Bedpan Bedpan # Voids 3 1 1 - Labs CBC & Chem 7: 08/01/18 07:50 08/02/18 06:59 Labs: Abnormal Lab Results - Last 24 Hours (Table) 08/01/18 08/01/18 08/01/18 Range/Units 07:50 12:35 18:00 Chloride (98-107) mmol/L BUN (7-17) mg/dL Creatinine (0.52-1.04) mg/dL Glucose (74-99) mg/dL POC Glucose (mg/dL) 173 H 301 H (75-99) mg/dL Iron 24 L (50-170) ug/dL TIBC 179 L (228-460) ug/dL 08/01/18 08/02/18 08/02/18 Range/Units 20:14 06:45 06:59 Chloride 110 H (98-107) mmol/L BUN 55 H (7-17) mg/dL Creatinine 1.76 H (0.52-1.04) mg/dL Glucose 57 L (74-99) mg/dL POC Glucose (mg/dL) 173 H 57 L (75-99) mg/dL Iron (50-170) ug/dL TIBC (228-460) ug/dL 08/02/18 08/02/18 Range/Units 07:09 11:09 Chloride (98-107) mmol/L BUN (7-17) mg/dL Creatinine (0.52-1.04) mg/dL Glucose (74-99) mg/dL POC Glucose (mg/dL) 74 L 116 H (75-99) mg/dL Iron (50-170) ug/dL TIBC (228-460) ug/dL Assessment and Plan Plan: Assessment: 1. Nonoliguric acute kidney injury mostly prerenal improved with discontinuation of LORRIE inhibitor. Creatinine peaked at 2.9 yesterday and is 1.76 today. 2. Chronic kidney disease stage III with baseline creatinine in the range of 1.5-2 secondary to diabetic kidney disease. 3. Fall with right subtrochanteric fracture status post closed reduction on July 29. 4. Diabetes mellitus. 5. Anemia of chronic kidney disease. Iron deficiency noted. 6. Hypertension with chronic kidney disease. Controlled. Plan: Encourage oral intake. Avoid nephrotoxic agents. Continue to hold lisinopril for now. Ferrlecit 125 mg IV daily for 3 days. First dose today. Maintain Aranesp. Repeat electrolytes in the morning.
--- NOTE | 2018-08-02 11:36 | P.PN ---
Subjective Progress Note Date: 08/02/18 Principal diagnosis: Subtrochanteric fracture right hip. Multiple medical comorbidities. This is an 83-year-old female who we're following regarding her right hip fracture. She is status post close reduction with insertion of long intertrochanteric nail. She continues to complain of right hip pain. She did have some confusion this weekend which is resolving. Vital signs are stable. Objective - Vital Signs Vital signs: Vital Signs Temp 98.2 F 08/02/18 07:00 Pulse 94 08/02/18 07:14 Resp 15 08/02/18 07:14 BP 147/69 08/02/18 07:00 Pulse Ox 95 08/02/18 07:00 Intake & Output 08/01/18 08/02/18 08/02/18 18:59 06:59 18:59 Intake Total 360 850 118 Output Total 600 200 Balance -240 850 -82 Weight 80.286 kg Intake: Oral 360 850 118 Output: Urine 600 200 Other: Voiding Method Bedpan Bedpan Bedpan # Voids 3 1 1 - Exam This is a pleasant 83-year-old female in no acute distress. She is resting comfortably. Exam of the right hip reveals that her dressing is clean, dry and intact. She has full foot and ankle motion without difficulty or pain. Neurovascular status to the right lower extremity is intact. - Labs CBC & Chem 7: 08/01/18 07:50 08/02/18 06:59 Labs: Abnormal Lab Results - Last 24 Hours (Table) 08/01/18 08/01/18 08/01/18 Range/Units 07:50 12:35 18:00 Chloride (98-107) mmol/L BUN (7-17) mg/dL Creatinine (0.52-1.04) mg/dL Glucose (74-99) mg/dL POC Glucose (mg/dL) 173 H 301 H (75-99) mg/dL Iron 24 L (50-170) ug/dL TIBC 179 L (228-460) ug/dL 08/01/18 08/02/18 08/02/18 Range/Units 20:14 06:45 06:59 Chloride 110 H (98-107) mmol/L BUN 55 H (7-17) mg/dL Creatinine 1.76 H (0.52-1.04) mg/dL Glucose 57 L (74-99) mg/dL POC Glucose (mg/dL) 173 H 57 L (75-99) mg/dL Iron (50-170) ug/dL TIBC (228-460) ug/dL 08/02/18 08/02/18 Range/Units 07:09 11:09 Chloride (98-107) mmol/L BUN (7-17) mg/dL Creatinine (0.52-1.04) mg/dL Glucose (74-99) mg/dL POC Glucose (mg/dL) 74 L 116 H (75-99) mg/dL Iron (50-170) ug/dL TIBC (228-460) ug/dL Assessment and Plan (1) Fracture, subtrochanteric, right femur, closed Current Visit: Yes Status: Acute Code(s): S72.21XA - DISPLACED SUBTROCHANTERIC FRACTURE OF RIGHT FEMUR, INIT SNOMED Code(s): 362163014 (2) Obesity (BMI 30.0-34.9) Current Visit: Yes Status: Acute Code(s): E66.9 - OBESITY, UNSPECIFIED SNOMED Code(s): 931656407 (3) Type 1 diabetes mellitus Current Visit: Yes Status: Acute Code(s): E10.9 - TYPE 1 DIABETES MELLITUS WITHOUT COMPLICATIONS SNOMED Code(s): 55705692 (4) Skin infection Current Visit: Yes Status: Acute Code(s): L08.9 - LOCAL INFECTION OF THE SKIN AND SUBCUTANEOUS TISSUE, UNSP SNOMED Code(s): 246761202 Plan: The clinical findings are discussed with the patient. She may be discharged to inpatient rehab when cleared medically. She is toe-touch weightbearing only to the right lower extremity with walker.
[2018-08-02] MEDS ORDERED: SODIUM FERRIC GLUCONAT-SUCROSE 125 MG in SODIUM CHLORIDE 0.9% 100 ML IVPB SCH (12:00)
[2018-08-02] MEDS: MULTIVITAMINS, THERA 1 EACH TAB PO SCH (12:42)
[2018-08-02 14:20] VITALS: BP 133/63; PULSE 80; RESP 16
--- NOTE | 2018-08-02 19:16 | P.DS ---
Providers Date of admission: 07/27/18 14:27 Expected date of discharge: 08/02/18 Attending physician: Ryan Eaton MD Consults: 07/27/18 14:01 Consult Physician Routine Consulting Provider: Tristen Sawyer Consult Reason/Comments: sub troch femur fracature Do you want consulting provider notified?: Already Contacted 07/27/18 14:59 Consult Physician Routine Consulting Provider: Tom Philippe Consult Reason/Comments: pre op clearance Do you want consulting provider notified?: Yes 07/27/18 16:52 Consult Physician Urgent Consulting Provider: Shon Velez Consult Reason/Comments: ABDOMINAL ABCESS Do you want consulting provider notified?: Yes 07/31/18 13:51 Consult Physician Routine Consulting Provider: Mark Roper Consult Reason/Comments: ASIA Do you want consulting provider notified?: Yes Primary care physician: [facility] Course: The patient is an 81-year-old female with a past medical history of COPD, diabetes, hypertension, OA, and CKD, who presented to the ED after mechanical fall. The patient was ambulating inside her house when her right lower extremity gave out and she fell onto her right side. The patient was brought to the ED and was found to have a subtrochanteric fracture involving the proximal right femur. Patient was ultimately seen by orthopedics who recommended closed reduction with insertion of a long intertrochanteric nail to the right hip. Postoperatively, the patient's course was contacted by episodes of delirium, which were believed to be secondary to Mae catheter insertion, versus hypoglycemic episodes. The patient's pain medications and benzodiazepines were subsequent held and her mentation improved. Furthermore infectious disease was consulted due to hidradenitis suppurativa and recommended local care due to the chronicity of the skin changes. The patient was also evaluated by nephrology for HPI and her LORRIE inhibitor was discontinued with subsequent improvement in creatinine. She was also started on Aranesp which was switched to Ecogen upon discharge. The patient was subsequently established with a subacute rehab and is presently stable and ready for transfer. Physical Examination General: Awake, alert, in no acute distress HEENT: NC/AT, anicteric sclerae, moist conjunctiva, no lid-lag, PERRLA, oropharynx clear, no erythema, exudates Cardiovascular: S1/S2 wnl, no murmurs, rubs, or gallops Lungs: Clear to auscultation, normal respiratory effort, no accessory muscle use Abdominal: Soft, nontender, non-distended, no guarding, rebound, or rigidity, normoactive bowel sounds Skin: warm and dry with areas of skin thickening over lower abdomen Extremities: No edema or contractures Psychiatric: Alert and oriented to person, place and time, appropriate affect, Intact judgment Neuro: CN II-XI grossly intact, sensation to light touch grossly present throughout, no focal sensory deficits Discharge diagnosis: R hip fracture s/p intramedullary nail, ASIA, Type 2 DM, CKD 3, Delirium, Hypoglycemia, Hypoalbuminemia, Hydradenitis suppurativa, Normocytic anemia A total of 70 minutes of time were spent preparing this complex discharge summary. Procedures: Echocardiogram: EF 50-55%. Mild , mild MR, mild TR, RVSP 45.07 Patient Condition at Discharge: Stable Plan - Discharge Summary Discharge Rx Participant: Yes New Discharge Prescriptions: New Insulin Detemir [Levemir] 10 unit SQ HS syr Ipratropium-Albuterol Nebulize [Duoneb 0.5 mg-3 mg/3 ml Soln] 3 ml INHALATION RT-QID PRN ampul.neb PRN Reason: Wheezing Multivitamins, Thera [Multivitamin (formulary)] 1 each PO DAILY@1200 tab Ferrous Sulfate [Feosol] 325 mg PO BID #60 tab Epoetin Chi [Epogen] 4,000 unit SQ DIRECTED #30 vial Continue PARoxetine [Paxil] 10 mg PO DAILY Metoprolol Succinate (ER) [Toprol XL] 25 mg PO DAILY Glimepiride [Amaryl] 2 mg PO DAILY Atorvastatin Calcium [Lipitor] 20 mg PO HS Apixaban [Eliquis] 2.5 mg PO BID ALPRAZolam [Xanax] 1 mg PO TID PRN PRN Reason: Anxiety Insulin Lispro [humaLOG Kwikpen] 4 unit SQ AC-TID NIFEdipine [NIFEdipine ER] 60 mg PO DAILY Levothyroxine Sodium [Synthroid] 50 mcg PO DAILY Discontinued Omeprazole 20 mg PO DAILY Acetaminophen with Codeine [Acetaminophen-Cod #2 Tablet] 1 tab PO BID PRN PRN Reason: Pain Insulin Glargine [Lantus] 30 unit SQ HS Doxycycline Hyclate [Vibramycin] 100 mg PO BID Potassium Chloride [Klor-Con 10] 10 meq PO DAILY Lisinopril [Zestril] 2.5 mg PO DAILY Furosemide [Lasix] 40 mg PO BID Insulin Lispro [humaLOG Kwikpen] See Protocol SQ AC-TID Discharge Medication List ALPRAZolam [Xanax] 1 mg PO TID PRN 07/27/18 [History] Apixaban [Eliquis] 2.5 mg PO BID 07/27/18 [History] Atorvastatin Calcium [Lipitor] 20 mg PO HS 07/27/18 [History] Glimepiride [Amaryl] 2 mg PO DAILY 07/27/18 [History] Insulin Lispro [humaLOG Kwikpen] 4 unit SQ AC-TID 07/27/18 [History] Levothyroxine Sodium [Synthroid] 50 mcg PO DAILY 07/27/18 [History] Metoprolol Succinate (ER) [Toprol XL] 25 mg PO DAILY 07/27/18 [History] NIFEdipine [NIFEdipine ER] 60 mg PO DAILY 07/27/18 [History] PARoxetine [Paxil] 10 mg PO DAILY 07/27/18 [History] Epoetin Chi [Epogen] 4,000 unit SQ DIRECTED #30 vial 08/02/18 [Rx] Ferrous Sulfate [Feosol] 325 mg PO BID #60 tab 08/02/18 [Rx] Insulin Detemir [Levemir] 10 unit SQ HS syr 08/02/18 [Rx] Ipratropium-Albuterol Nebulize [Duoneb 0.5 mg-3 mg/3 ml Soln] 3 ml INHALATION RT -QID PRN ampul.neb 08/02/18 [Rx] Multivitamins, Thera [Multivitamin (formulary)] 1 each PO DAILY@1200 tab [Rx] Follow up Appointment(s)/Referral(s): Jimmie Chapa MD [Primary Care Provider] - 1-2 days Tristen Sawyer MD [STAFF PHYSICIAN] - 08/15/18 2:15 pm () Mark Roper DO [STAFF PHYSICIAN] - 1 Week Activity/Diet/Wound Care/Special Instructions: 1. Toe touch weightbearing right lower extremity 2. Keep dressing over the right hip clean, dry, intact 3. Patient may shower without dressing intact over the right hip if dressing remains dry for 3 days 4. May apply ice over the right hip for comfort support as needed 5. Take medications as prescribed Discharge Disposition: TRANSFER TO SNF/ECF
--- NOTE | 2018-08-04 04:51 | CDI ---
Last Revision, October 2017 Documentation Clarification Form Date: 08/04/2018 4:46:42 AM From: Susanna Franco Phone: If you have a question about this query, please contact Mercedez López Maintenance Scheduler at [phone] between 8am and 5pm. Admit Date: 07/27/2018 2:27:00 PM Patient Name: Eli Coreas Visit Number: [id number] Discharge Date: 08/02/18 ATTENTION: The Clinical Documentation Specialists (CDI) and [facility] Coding Staff appreciate your assistance in clarifying documentation. Please respond to the clarification below the line at the bottom and electronically sign. The CDI & [facility] Coding staff will review the response and follow-up if needed. Please note: Queries are made part of the Legal Health Record. If you have any questions, please contact the author of this message via ITS. Dr. JIN, Ryan Haile MD Conflicting documentation has been found in regards to type of DM. H and P and DCS state DM type 2 and ortho consult documents Type 1 DM. Please clarify. History/Risk Factors: CKD and nephropathy due to DM. Patient also had delirium possibly due to hypoglycemia Clinical Indicators: Glucose during inpatient stay anywhere from 50-301. Treatment: Insulin In your opinion what is the most clinically appropriate diagnosis for this patient? please refer your question to a provider that saw the patient during this visit. MTDD
== END 2018-08-02 16:57 | DRG 481 ==
LOC: EC 12:11 → 3SUR 14:27
PROVIDERS: ADMIT Family Medicine; ATTEND Family Medicine
PROC: 0QS636Z Reposition Right Upper Femur with Intramedullary Internal Fixation Device, Percutaneous Approach (ICD-10-PCS; principal; 2018-07-29 11:40)
DX: S72.21XA Displaced subtrochanteric fracture of right femur, initial encounter for closed fracture (principal); N17.9 Acute kidney failure, unspecified; W01.0XXA Fall on same level from slipping, tripping and stumbling without subsequent striking against object, initial encounter; Z91.81 History of falling; Y92.009 Unspecified place in unspecified non-institutional (private) residence as the place of occurrence of the external cause; D63.1 Anemia in chronic kidney disease; E61.1 Iron deficiency; E66.9 Obesity, unspecified; E11.21 Type 2 diabetes mellitus with diabetic nephropathy; Z79.4 Long term (current) use of insulin; E11.22 Type 2 diabetes mellitus with diabetic chronic kidney disease; I12.9 Hypertensive chronic kidney disease with stage 1 through stage 4 chronic kidney disease, or unspecified chronic kidney disease; N18.3 Chronic kidney disease, stage 3 (moderate); E11.649 Type 2 diabetes mellitus with hypoglycemia without coma; E88.09 Other disorders of plasma-protein metabolism, not elsewhere classified; F41.9 Anxiety disorder, unspecified; G89.29 Other chronic pain; I08.3 Combined rheumatic disorders of mitral, aortic and tricuspid valves; J44.9 Chronic obstructive pulmonary disease, unspecified; L73.2 Hidradenitis suppurativa; L08.9 Local infection of the skin and subcutaneous tissue, unspecified; M19.90 Unspecified osteoarthritis, unspecified site; R29.6 Repeated falls; Z79.01 Long term (current) use of anticoagulants; Z79.899 Other long term (current) drug therapy; Z80.1 Family history of malignant neoplasm of trachea, bronchus and lung; Z82.5 Family history of asthma and other chronic lower respiratory diseases; Z87.891 Personal history of nicotine dependence; Z90.710 Acquired absence of both cervix and uterus; R41.0 Disorientation, unspecified; H26.9 Unspecified cataract; Z99.81 Dependence on supplemental oxygen; Z60.2 Problems related to living alone; Z79.890 Hormone replacement therapy; E03.9 Hypothyroidism, unspecified; Z68.30 Body mass index [BMI] 30.0-30.9, adult
CPT/HCPCS: 36415; 64450; 70450; 71045; 72125; 72170; 73502; 80048; 80053; 81001; 82570; 82728; 83036; 83540; 83550; 84156; 85025; 85045; 85610; 85730; 86850; 86900; 86901; 93005; 93306; 99285